=== PATIENT | male | born 1945 | race Caucasian/White ===

== ENCOUNTER 2019-02-21 15:36 | Emergency (ER) | payer MEDICARE, SELFPAY ==
--- NOTE | 2019-02-21 15:41 | ED.GENADUL_ITS ---
Discharge Plan Disposition Patient Disposition: HOME Discharge Details Chief Complaint: Laceration Clinical Impression: Finger laceration Primary Care Provider: Concepcion,Local ED Provider: Micha Yang Home Meds and New Rx's Prescriptions: No Action atorvastatin [Lipitor] 80 mg Tablet 80 mg PO DAILY RF: 0 propranolol 40 mg Tablet 40 mg PO RF: 0 Discharge Instructions Instructions: Finger Laceration (ED) Additional Instructions: Please return to the emergency department immediately for pain bleeding swelling purulent discharge fever chills or other concerns. Medical Decision Making 73-year-old male with finger laceration avulsion no tendon injury no vascular compromise hemostatic patient presents 18 to 20 hours post injury outside of primary closure window will closed with Steri-Strips splint and have patient follow-up for delayed primary closure at his discretion. Otherwise patient to return for bleeding pain swelling purulent discharge or other concern. HPI 73-year-old male with laceration to left middle finger opening a dog food can l ast night approximately 18 to 20 hours prior to arrival today presents with continued oozing pain for assessment and possible closure. Patient tetanus updated within the last month with a routine physician visit denies other trauma. Pain is sharp nonradiating worse with movement and palpation better with rest. General Date/Time Provider Initiated Documentation: 02/21/19 15:38 . Related Data Home Medications Medication Instructions Recorded Confirmed atorvastatin [Lipitor] 80 mg PO DAILY 02/21/19 02/21/19 propranolol 40 mg PO 02/21/19 Allergies Allergy/AdvReac Type Severity Reaction Status Date / Time No Known Allergies Allergy Unverified 02/21/19 15:46 Review of Systems Narrative: No sob/chest pain/nausea/vomiting/loss of consciousness/fever/chills/ . All other systems reviewed and negative or stated as positive here or in HPI above[] All systems reviewed & are unremarkable except as noted in HPI and below PFSH Social History Smoking/Tobacco Use Status: Never Do you feel safe at home: Yes Do you feel safe in your relationship?: Yes Exam Narrative Exam Narrative: Pulse oximetry reviewed by me and is normal [] Constitutional: Pt is in no acute distress. pt is well appearing. oriented to person, place, and time. Eyes: conjunctivae are normal. Pupils are equal, round, and reactive to light. No scleral icterus. extraocular muscles are intact Ears/Nose/Mouth/Throat: mucus membranes are moist. Musculoskeletal: neck is supple. normal range of motion in all extremities. Cardiovascular: Normal rate and rhythm. No lower extremity edema [] Respiratory: effort is normal . pt exhibits no stridor or respiratory distress. [] GastrointestinaI: abdomen soft, +BS, nontender, -rebound, -guarding. Neurological: alert and oriented to person, place, and time. he has normal strength, no tremor. Skin: Skin is warm and dry. he is not diaphoretic. Distal perfusion in tact, warm extremities, cap refill ? 2 seconds. 2 cm avulsion laceration left middle finger volar surface wound irrigated anesthetized with 2 cc digital block 1% lidocaine explored with bloodless field for tourniquet no tendon involvement no deep space injury no gross contamination full motor and sensation distally. Hem/Lymph/Imm: No cervical LAD, no goiter, no conjunctival pallor Psych: normal mood and affect. behavior is normal Triage and nurse notes reviewed.[]
[2019-02-21 15:43] VITALS: BP 153/109; PULSE 84; RESP 18; TEMP 36.8; O2SAT 97
== END 2019-02-21 16:33 | disposition home or self-care (01) ==
PROVIDERS: Emergency Provider Emergency Medicine
DX: S61.213A Laceration without foreign body of left middle finger without damage to nail, initial encounter (principal); W26.8XXA Contact with other sharp object(s), not elsewhere classified, initial encounter
CPT/HCPCS: 29130; 99283; 99282

== ENCOUNTER 2019-04-27 08:46 | Emergency (ER) | payer MEDICARE, SELFPAY ==
[2019-04-27 08:51] VITALS: BP 129/100; PULSE 103; RESP 20; TEMP 36.9; O2SAT 97
[2019-04-27] MEDS: Normal Saline 1,000 ML 1000 ML IV (09:15)
[2019-04-27] MEDS: Normal Saline Flush 10 ML SYR IVP (09:19)
[2019-04-27 09:27] LABS: Abs Immature Grans 0.04 k/cumm (0.0-0.09); HCT 45.8 % (40.0-50.0); HGB 15.8 g/dL (13.5-17.5); Mean Corp. HGB Concentration 34.5 g/dL (32.0-36.0); Mean Corpuscular Hemoglobin 30.3 pg (27.0-33.0); Mean Corpuscular Volume 87.7 fL (80-95); Mean Platelet Volume 9.7 fL (8.0-11.0); Platelet Count 236 x1000/uL (130-400); RBC 5.22 m/cumm (4.50-6.00); RBC Distribution Width 14.3 % (11.8-14.1); White Blood Cell Count 4.71 k/cumm (4.4-10.8)
[2019-04-27] MEDS: Ondansetron 4 MG/2 ML VIAL IVP (09:35)
[2019-04-27 09:41] LABS: ALT 22 U/L (16-63); AST 29 U/L (15-37); Albumin 3.5 g/dL (3.4-5.0); Alkaline Phosphatase 48 U/L (46-116); Anion Gap 13.6 mmol/L (3-11); BUN 36 mg/dL (7-18); Bilirubin, Total 0.7 mg/dL (0.2-1.0); CO2 24.4 mmol/L (21.0-32.0); CREATININE 1.57 mg/dL (0.70-1.30); Calcium 9.1 mg/dL (8.5-10.1); Chloride 97 mmol/L (98-107); Estimated GFR 43.52 (mL/min/1.73m2); Glucose 128 mg/dL (74-106); Lipase 100 U/L (73-393); Potassium 3.3 mmol/L (3.5-5.1); Sodium 135 mmol/L (136-145); Total Protein 7.9 g/dL (6.4-8.2)
[2019-04-27] MEDS: FAMOTIDINE 20 MG/50 ML BAG 200 MG IVPB (09:45)
[2019-04-27 10:04] LABS: Absolute Lymphocyte Count 0.89 k/cumm (1.2-3.4); Absolute Monocyte Count 0.94 k/cumm (0.11-0.7); Absolute Neutrophil Count 2.83 k/cumm (1.2-6.7); Diff Comment Manual Differential; Promyelocytes % 0 %
[2019-04-27 10:05] LABS: Anisocytosis 1+
[2019-04-27] MEDS: Normal Saline 500 ML 1000 ML IV (10:49)
--- NOTE | 2019-04-27 11:12 | W.ED.GENAD ---
Discharge Plan Disposition Patient Disposition: HOME Condition: Improving Discharge Details Chief Complaint: Nausea/Vomit/Diar Clinical Impression: Viral gastroenteritis Primary Care Provider: None,None ED Provider: Zaynab Wheeler Home Meds and New Rx's Prescriptions: New ondansetron HCl [Zofran] 4 mg tablet 4 mg PO Q8H PRN (Reason: nausea and vomiting) Qty: 7 RF: 0 Continued amlodipine [Norvasc] 10 mg Tablet 10 mg PO RF: 0 pantoprazole 40 mg Tablet,Delayed Release (Dr/Ec) 40 mg PO RF: 0 atorvastatin [Lipitor] 80 mg Tablet 80 mg PO DAILY RF: 0 Discharge Instructions Instructions: Gastroenteritis (ED) Additional Instructions: Advance diet as tolerated. Initially begin with clear liquids. Avoid dairy, cheese, spicy or acidic. Use nausea medication for symptomatic relief if needed. Observe for any signs of dehydration. Recheck with PCP for any persistence of symptoms lasting greater than 2 to 3 days. Return to the emergency room immediately for any increase in abdominal pain, worsening symptoms, fever or alarming symptoms sooner if needed Medical Decision Making Is a 73-year-old patient presenting for the evaluation of nausea vomiting and diarrhea. Patient reports 3 days complaints of intermittent watery diarrhea. Patient does report associated nausea and food aversion after attempting to eat last night did vomit. Patient reports chills and a temperature of 100.8 noted on day 1 which has since improved. Patient denies nasal congestion, sore throat or coughing. Patient feeling flulike. Patient does report abdominal pain which is intermittent. Denies abdominal pain at this time. Patient presents to the emergency room accompanied by his who is a material coordinator and has been trying to assist patient in staying hydrated but both and patient are now concerned that patient is dehydrated. Patient does clinically appear dehydrated. Patient did not take blood pressure medications this morning as he was quite nauseous. Patient's vital signs reviewed. Mild tachycardia and hypertension noted at this time. No measured fever or hypoxia. Patient in no apparent distress at the bedside however does appear dehydrated. Abdominal exam is benign. We will plan to hydrate patient and provide symptomatic relief with Zofran as well as Pepcid. Patient is reporting some symptomatic improvement after Zofran Pepcid and initial liter of IV fluid. Patient has not yet urinated. We will plan to provide an additional 500 cc. Given patient's nausea improvement will trial his p.o. blood pressure medication. Patient agrees with plan of care. Labs revealed. No evident leukocytosis. Patient has borderline sodium potassium and chloride findings none of which seem emergent. Patient has a mild elevation of anion gap and BUN and creatinine. Possibly due to dehydration. Reevaluation of the patient reveals a persistently benign abdominal exam. Patient feeling significantly improved. Patient is dressed, standing at the bedside, requesting discharge home. Patient's vital signs reviewed and have entirely improved. Patient denies dizziness, weakness or fatigue. No abdominal pain at this time. Will discharge patient with Zofran for symptomatic relief. Discussed slowly advancing diet as tolerated and beginning with clear liquids. Patient reports his understanding. Encouraged follow-up if not improving the next 2 to 3 days. The patient was stable and requested discharge. Prior to discharge, my usual and customary return precautions were reviewed with the patient - this included follow-up instructions and reasons to return to the Emergency Department if conditions worsens, does not improve as expected, or other new concerns arise. HPI General Date/Time Provider Initiated Documentation: 04/27/19 08:58. HPI Narrative: Is a pleasant 73-year-old patient presenting to the emergency room for complaints of nausea vomiting and diarrhea. Patient reports onset of symptoms 3 days ago. Patient reports food aversion with nausea. Patient does report an episode of vomiting last evening after trying to eat some eggs. Patient reports predominantly watery diarrhea for the last 3 days. Denies any obvious ill exposures. Denies any recent antibiotic use. Patient denies any blood with the bowel movements. Patient does report intermittent crampy abdominal pain. Patient presents today as he is now feeling dehydrated. Patient reports mild fatigue present. Chills present temperature at home max of 100.8, noted on day 1 which has since improved. Patient denies any chest pain, difficulty breathing, shortness of breath. Patient denies back pain. Denies dysuria, urgency or frequency. Does report scant urine output today. No other concerns or complaints at this time. Denies nasal congestion, sore throat or coughing. No upper respiratory symptoms associated. Related Data Home Medications Medication Instructions Recorded Confirmed atorvastatin [Lipitor] 80 mg PO DAILY 02/21/19 04/27/19 amlodipine [Norvasc] 10 mg PO 04/27/19 ondansetron HCl [Zofran] 4 mg PO Q8H PRN #7 tab 04/27/19 pantoprazole 40 mg PO 04/27/19 Previous Rx's Medication Instructions Recorded ondansetron HCl [Zofran] 4 mg PO Q8H PRN #7 tab 04/27/19 Allergies Allergy/AdvReac Type Severity Reaction Status Date / Time No Known Allergies Allergy Unverified 04/27/19 08:57 General Stated Complaint: Nausea/Vomit/Diar JOSH: 3 Review of Systems All systems reviewed & are unremarkable except as noted in HPI and below Constitutional Constitutional: Reports chills, Reports fatigue, Denies fever(s), Reports headache(s), Reports malaise and Reports poor appetite ENT Ears, Nose, Mouth, and Throat: Denies vertigo, Denies dizziness, Reports headache(s), Denies nasal congestion, Denies post nasal drip, Denies sinus pain, Denies sinus pressure and Denies sore throat Cardiovascular Cardiovascular: Denies chest pain, Denies diaphoresis, Denies dyspnea and Denies dyspnea on exertion Respiratory Respiratory: Denies cough, Denies dyspnea and Denies dyspnea on exertion Gastrointestinal Gastrointestinal: Reports abdominal pain, Reports cramping, Reports heartburn, Reports diarrhea, Reports nausea and Reports vomiting Genitourinary Genitourinary: Denies dysuria and Denies flank pain Neurologic Neurologic: Denies vertigo, Denies dizziness and Reports headache(s) Endocrine Endocrine: Reports fatigue PFSH Social History Smoking/Tobacco Use Status: Never Do you feel safe at home: Yes Do you feel safe in your relationship?: Yes Exam Narrative Exam Narrative: CONST: Healthy appearing patient, in no acute distress. Well hydrated. Alert and oriented. HENMT: Head nomocephalic, normal to inspection. Atraumatic. Hearing grossly normal. TMs appear normal bilaterally. No pharyngeal erythema. Dry mucous membranes specifically tongue noted. EYES: General normal appearance. Alignment normal. Eyelids normal. Conjunctiva normal. NECK: Normal visual inspection. FROM. Trachea midline. No Midline tenderness. No cervical lymphadenopathy at this time CHEST: Normal insepection of the chest. RESP: Normal respiratory effort. Speaking full sentences. No cough. No audible wheezing. No retractions. Breath sounds clear, full and equal bilaterally. No wheezing, rhonchi or rales CARDIO: No JVD. No murmur. Regular rate and rhythm GI: Bowel sounds are present in all 4 quadrants. Abdomen is soft. Mild epigastric tenderness. No peritoneal signs, rebound or guarding. Back: No CVA tenderness noted bilaterally SKIN: Normal. Dry. No rashes. NEURO: Alert and awake. Speech clear. PSYCH: Normal affect. Cooperative. Course Vital Signs Vital signs: Vital Signs Temperature 36.9 C 04/27/19 08:51 Pulse 103 H 04/27/19 08:51 Respiratory Rate 20 04/27/19 08:51 Blood Pressure 129/100 H 04/27/19 08:51 Pulse Oximetry 97 04/27/19 08:51 Temperature 36.9 C 04/27/19 08:51 Temperature Source Oral 04/27/19 08:51 Pulse 103 H 04/27/19 08:51 Respiratory Rate 04/27/19 08:51 Respiratory Effort 04/27/19 08:55 Blood Pressure 129/100 H 04/27/19 08:51 Blood Pressure Position Supine 04/27/19 08:51 Pulse Oximetry 97 04/27/19 08:51 Oxygen Delivery Method Room Air 04/27/19 08:51 Oxygen Flow Rate 0 04/27/19 08:51 Lab/Test Results Lab/Test Results: 04/27/19 09:07 Nasopharynx Influenza Types A,B Antigen - Final Laboratory Tests Range/Units 04/27/19 04/27/19 09:16 09:16 WBC (4.4-10.8) k/cumm 4.71 RBC (4.50-6.00) m/cumm 5.22 Hgb (13.5-17.5) g/dL 15.8 Hct (40.0-50.0) % 45.8 MCV (80-95) fL 87.7 MCH (27.0-33.0) pg 30.3 MCHC (32.0-36.0) g/dL 34.5 RDW (11.8-14.1) % 14.3 H Plt Count (130-400) x1000/uL 236 MPV (8.0-11.0) fL 9.7 Immature Gran % See Differential Neutrophils % 60.0 Lymphocytes % 19.0 Monocytes % 20.0 Eosinophils % 0.0 Basophils % 0.0 Metamyelocytes % % 1.0 Myelocytes % % 0.0 Promyelocytes % % 0 Absolute Neutrophils (1.2-6.7) k/cumm 2.83 Absolute Lymphocytes (1.2-3.4) k/cumm 0.89 L Absolute Monocytes (0.11-0.7) k/cumm 0.94 H Absolute Eosinophils (0.0-0.7) k/cumm 0.00 Absolute Basophils (0.0-0.2) k/cumm 0.00 Differential Comment Manual differential RBC Morphology See below Anisocytosis 1+ Sodium (136-145) mmol/L 135 L Potassium (3.5-5.1) mmol/L 3.3 L Chloride (98-107) mmol/L 97 L Carbon Dioxide (21.0-32.0) mmol/L 24.4 Anion Gap (3-11) mmol/L 13.6 H BUN (7-18) mg/dL 36 H Creatinine (0.70-1.30) mg/dL 1.57 H Estimated GFR/1.73 m2 (mL/min/1.73m2) 43.52 Glucose (74-106) mg/dL 128 H Calcium (8.5-10.1) mg/dL 9.1 Total Bilirubin (0.2-1.0) mg/dL 0.7 AST (15-37) U/L 29 ALT (16-63) U/L 22 Alkaline Phosphatase (46-116) U/L 48 Total Protein (6.4-8.2) g/dL 7.9 Albumin (3.4-5.0) g/dL 3.5 Lipase (73-393) U/L 100
[2019-04-27 12:00] LABS: Bilirubin Negative (Negative); Blood Trace-lysed (Negative); Clarity Clear (Clear); Glucose Negative (Negative); Ketones 15 mg/dL (Negative); Leukocyte Esterase Negative (Negative); Nitrite Negative (Negative); Specific Gravity 1.025 (1.005-1.025); Urobilinogen 0.2 EU/dL (Up TO 0.2); pH 5.5 (5-8)
[2019-04-27 12:09] LABS: Bacteria Negative HPF (Negative); Crystals Negative HPF (Negative); Epithelial Cells Rare HPF (Negative); Mucus Negative (Negative); RBC 0-2 HPF (0-2)
[2019-04-27 12:14] LABS: C & S Indicated? Yes; Casts 0-2 Hyaline LPF (Negative)
[2019-04-27 12:24] VITALS: BP 122/72; PULSE 84; TEMP 36.5; O2SAT 96
== END 2019-04-27 12:45 | disposition home or self-care (01) ==
PROVIDERS: Emergency Provider Physician Assistant
DX: A08.4 Viral intestinal infection, unspecified (principal)
CPT/HCPCS: 80053; 83690; 87449; 96361; 96365; 96374; 99284; 81003; 81015; 85025; 87086; J2405

== ENCOUNTER 2019-09-02 14:39 | Emergency (ER) | payer MEDICARE, SELFPAY ==
[2019-09-02] VITALS (8 sets, daily range): BP systolic 137–185; BP diastolic 77–93; PULSE 49–70; RESP 10–23; TEMP 36.6–36.7; O2SAT 97–100
[2019-09-02 15:03] LABS: Lactate 1.4 mmol/L (0.6-1.4)
[2019-09-02 15:06] LABS: Abs Immature Grans 0.03 k/cumm (0.0-0.09); Absolute Basophil Count 0.04 k/cumm (0.0-0.2); Absolute Eosinophil Count 0.11 k/cumm (0.0-0.7); Absolute Lymphocyte Count 1.87 k/cumm (1.2-3.4); Absolute Monocyte Count 0.91 k/cumm (0.11-0.7); Absolute Neutrophil Count 9.21 k/cumm (1.2-6.7); Basophils % 0.3; Eosinophils % 0.9; HCT 48.1 % (40.0-50.0); HGB 16.3 g/dL (13.5-17.5); Immature Grans % 0.2 %; Lymphocytes % 15.4; Mean Corp. HGB Concentration 33.9 g/dL (32.0-36.0); Mean Corpuscular Hemoglobin 29.7 pg (27.0-33.0); Mean Corpuscular Volume 87.8 fL (80-95); Mean Platelet Volume 9.8 fL (8.0-11.0); Monocytes % 7.5; Neutrophils % 75.7; Platelet Count 254 x1000/uL (130-400); RBC 5.48 m/cumm (4.50-6.00); RBC Distribution Width 15.1 % (11.8-14.1); White Blood Cell Count 12.17 k/cumm (4.4-10.8)
[2019-09-02 15:26] LABS: ALT 20 U/L (16-63); AST 25 U/L (15-37); Alkaline Phosphatase 56 U/L (46-116); Anion Gap 11.4 mmol/L (3-11); BUN 14 mg/dL (7-18); Bilirubin, Total 0.7 mg/dL (0.2-1.0); CO2 25.6 mmol/L (21.0-32.0); CREATININE 1.04 mg/dL (0.70-1.30); Calcium 9.5 mg/dL (8.5-10.1); Chloride 103 mmol/L (98-107); Glucose 105 mg/dL (74-106); Lipase 75 U/L (73-393); Potassium 3.3 mmol/L (3.5-5.1); Sodium 140 mmol/L (136-145); TSH (W/Ref FT4) 1.93 uIU/mL (0.36-3.74); Total Protein 7.8 g/dL (6.4-8.2)
[2019-09-02] MEDS: Lactated Ringers 500 ML IV (15:26)
[2019-09-02 15:28] LABS: Troponin I < 0.05 ng/mL (<0.06)
--- NOTE | 2019-09-02 15:31 | W.ED.GENAD ---
Discharge Plan Disposition Patient Disposition: HOME Condition: Stable Discharge Details Chief Complaint: Abd Prob Clinical Impression: Abdominal pain, Diverticulosis, Hypokalemia, Elevated blood pressure reading, Prostate enlargement Primary Care Provider: None,None ED Provider: Jaime Clemens Home Meds and New Rx's Prescriptions: Continued amlodipine [Norvasc] 10 mg Tablet 10 mg PO DAILY RF: 0 pantoprazole 40 mg Tablet,Delayed Release (Dr/Ec) 40 mg PO RF: 0 ondansetron HCl [Zofran] 4 mg tablet 4 mg PO Q8H PRN (Reason: nausea and vomiting) Qty: 7 RF: 0 atorvastatin [Lipitor] 80 mg Tablet 80 mg PO DAILY RF: 0 Discharge Instructions Instructions: Hypokalemia (ED), Abdominal Pain (ED) Additional Instructions: Please be sure to discuss findings on CT with your urologist. Call to schedule follow-up. Please contact your primary care physician to arrange follow-up. Be sure to discuss your elevated blood pressure with your primary care physician. Return to the ER for any worsening or new concerning symptoms. Discharge Data Discharge Date/Time-TO BE ENTERED AT DEPARTURE: 09/02/19 18:28 Medical Decision Making 73-year-old male here with lower abdominal pain. Patient notes pain across his waistline for the past 5 hours. Labs reviewed and mild hypokalemia. K-Dur [address] the abdomen pelvis was interpreted by radiology: IMPRESSION: 1. Severe diverticulosis of but no definite evidence of acute diverticulitis 2. Marked enlargement the prostate gland which appears very inhomogeneous. If clinically indicated PSA value and consultation with a urologist is suggested Screening ECG was reviewed and interpreted by me: Sinus bradycardia 55 bpm, right bundle branch block is present with left axis. Patient reassessed and pain resolved. Patient notes pain is been gone for the past one-two hours and feels much better. All results were discussed with the patient. Patient was notified that his blood pressure was elevated today and that he should follow-up with his doctor. Patient also plans to follow-up with his urologist. Disposition decision was made weighing the risks and benefits of hospitalization versus outpatient treatment, the risk for further decompensation, and the patient's wishes. The patient was stable and requested discharge. Prior to discharge, my usual and customary return precautions were reviewed with the patient - this included follow-up instructions and reason to return to the emergency department if condition worsens, does not improve as expected, or other new concerns arise. HPI General Mode of arrival: ambulatory. Date/Time Provider Initiated Documentation: 09/02/19 14:53. Limitations to Documentation: no limitations. Information obtained by: patient. HPI Narrative: 73-year-old male with history of diverticulosis presents with chief complaint of abdominal pain. Pain started 5 hours ago and has persisted. No associated nausea or vomiting. Patient notes chronic irritable bowel with intermittent loose stool, intermittent constipation for some time. Patient denies associated chest pain. Patient does note significant stress recently with the loss of his pet dog. Related Data Home Medications Medication Instructions Recorded Confirmed atorvastatin [Lipitor] 80 mg PO DAILY 02/21/19 09/02/19 amlodipine [Norvasc] 10 mg PO DAILY 04/27/19 09/02/19 ondansetron HCl [Zofran] 4 mg PO Q8H PRN #7 tab 04/27/19 09/02/19 pantoprazole 40 mg PO 04/27/19 Previous Rx's Medication Instructions Recorded ondansetron HCl [Zofran] 4 mg PO Q8H PRN #7 tab 04/27/19 Allergies Allergy/AdvReac Type Severity Reaction Status Date / Time No Known Allergies Allergy Unverified 09/02/19 14:49 General Stated Complaint: Abd Prob JOSH: 3 Review of Systems All systems reviewed & are unremarkable except as noted in HPI and below Constitutional Constitutional: Denies fever(s) Gastrointestinal Gastrointestinal: Reports abdominal pain, Denies nausea and Denies vomiting Genitourinary Genitourinary: Denies dysuria and Denies scrotal swelling [facility] Social History Smoking/Tobacco Use Status: Never Alcohol Intake: current Alcohol Intake frequency: a few times a month Drug use: Never Substance use type: does not use Do you feel safe at home: Yes Do you feel safe in your relationship?: Yes Exam Const General: cooperative and no acute distress HENMT Mouth: moist mucous membranes Eyes Conjunctivae: normal conjunctivae Sclera: normal sclerae Neck Neck: trachea midline and supple Resp Auscultation: clear to auscultation bilaterally, no rales, no rhonchi and no wheezes Cardio Jugular venous pressure: no JVD Rate: regular rate and not tachycardic Rhythm: regular rhythm GI Palpation: soft, not firm, no guarding, no masses, not rigid and tender in the LLQ and in the RLQ Skin General skin exam: no rashes or lesions noted Neuro General: patient alert, patient awake, patient oriented x3 and tone normal Extrem General: no edema Psych Appearance: grossly normal Mental Status: mental status grossly normal Course Vital Signs Vital signs: Vital Signs Temperature 36.6 C 09/02/19 14:44 Pulse 50 L 09/02/19 14:44 Blood Pressure 185/84 H 09/02/19 14:44 Pulse Oximetry 100 09/02/19 14:44 Temperature 36.6 C 09/02/19 14:44 Temperature Source Temporal Artery Scan 09/02/19 14:44 Pulse 50 L 09/02/19 14:44 Respiratory Effort Non-Labored 09/02/19 14:47 Blood Pressure 185/84 H 09/02/19 14:44 Blood Pressure Position Sitting 09/02/19 14:44 Pulse Oximetry 100 09/02/19 14:44 Oxygen Delivery Method Room Air 09/02/19 14:44 Oxygen Flow Rate 0 09/02/19 14:44 Pain Level 5 09/02/19 14:44 Lab/Test Results Lab/Test Results: Laboratory Tests Range/Units 09/02/19 09/02/19 09/02/19 14:58 14:58 14:58 WBC (4.4-10.8) k/cumm 12.17 H RBC (4.50-6.00) m/cumm 5.48 Hgb (13.5-17.5) g/dL 16.3 Hct (40.0-50.0) % 48.1 MCV (80-95) fL 87.8 MCH (27.0-33.0) pg 29.7 MCHC (32.0-36.0) g/dL 33.9 RDW (11.8-14.1) % 15.1 H Plt Count (130-400) x1000/uL 254 MPV (8.0-11.0) fL 9.8 Immature Gran % % 0.2 Neutrophils % 75.7 Lymphocytes % 15.4 Monocytes % 7.5 Eosinophils % 0.9 Basophils % 0.3 Absolute Neutrophils (1.2-6.7) k/cumm 9.21 H Absolute Lymphocytes (1.2-3.4) k/cumm 1.87 Absolute Monocytes (0.11-0.7) k/cumm 0.91 H Absolute Eosinophils (0.0-0.7) k/cumm 0.11 Absolute Basophils (0.0-0.2) k/cumm 0.04 Sodium (136-145) mmol/L 140 Potassium (3.5-5.1) mmol/L 3.3 L Chloride (98-107) mmol/L 103 Carbon Dioxide (21.0-32.0) mmol/L 25.6 Anion Gap (3-11) mmol/L 11.4 H BUN (7-18) mg/dL 14 Creatinine (0.70-1.30) mg/dL 1.04 Estimated GFR/1.73 m2 (mL/min/1.73m2) >= 60.00 Glucose (74-106) mg/dL 105 Lactate (0.6-1.4) mmol/L 1.4 Calcium (8.5-10.1) mg/dL 9.5 Total Bilirubin (0.2-1.0) mg/dL 0.7 AST (15-37) U/L 25 ALT (16-63) U/L 20 Alkaline Phosphatase (46-116) U/L 56 Troponin I (<0.06) ng/mL < 0.05 Total Protein (6.4-8.2) g/dL 7.8 Albumin (3.4-5.0) g/dL 4.0 Lipase (73-393) U/L 75 TSH (0.36-3.74) uIU/mL 1.93
--- NOTE | 2019-09-02 15:45 | DI.CT_ITS ---
EXAM: CT ABDOMEN PELVIS W CLINICAL HISTORY: lower abdominal pain bilateral waist line 5 hours TECHNIQUE: Imaging Protocol: Axial computed tomography images with coronal and sagittal reformatted images were created and reviewed CONTRAST MATERIAL: Intravenous: Omnipaque 350 Contrast volume:100 mL Oral: No COMPARISON: No exams were available for comparison FINDINGS: ABDOMEN: Lung Bases: Mild atelectasis in the lung bases. Liver: Normal density. No measurable mass. Portal, Superior Mesenteric, and Splenic Veins: Unremarkable. Gallbladder and Biliary Tract: No radiodense calculus or dilation. Pancreas: Normal density, no abnormal calcifications or inflammatory process. Spleen: Normal. Adrenals: No masses seen. Kidneys: Normal size, contour and axis. No radiodense stones or obstructive uropathy. Multiple tiny h ypodense lesions are seen scattered throughout both kidneys. Several of these are too small for furt her characterization but likely reflect small cysts. Abdominal Aorta: Abdominal portion non-dilated. Atherosclerosis. Bowel: There is no evidence of obstruction. There is diffuse diverticulosis of the colon. There is mild thickening of the wall of the mid sigmoid colon. No definite pericolonic inflammatory changes s een in this region. There is mild increased attenuation in the surrounding fat in the splenic flexur e. The findings raise a question of acute diverticulitis. Appendix is unremarkable. Peritoneal Cavity: No ascites, collection or mesenteric inflammatory response. Lymph Nodes: Within normal limits. Bones: Moderate degenerative changes are seen in the spine. There is grade 1 pseudo spondylolisthesi s of L4 on L5. Soft Tissues: Unremarkable. PELVIS: Bladder: The urinary bladder is well distended. There is mild diffuse urinary bladder wall thickenin g present. Reproductive Organs: Prostate gland is heterogeneous and enlarged. It impinges upon the base of the urinary bladder. Lymph Nodes: Within normal limits. Bones: Please see above. IMPRESSION: 1. Colonic diverticulosis. Pericolonic stranding in the splenic flexure which may represent acute di verticulitis. No abscess or free air. 2. Enlarged heterogeneous prostate gland. It impinges upon base of the urinary bladder. If clinical ly indicated, correlation with the patient's PSA value and urology consult may be obtained. RADIATION DOSE DELIVERED: Total DLP DATA REPOSITORY: All CT scans at this facility are submitted to the National Radiology Data Registry (NRDR) Dose Index Registry (DIR) with the [employer] ([employer]). RADIATION OPTIMIZATION: All CT scans at this facility use at least one of these dose optimization te chniques: automated exposure control; mA and/or kV adjustment per patient size (includes targeted exa ms where dose is matched to clinical indication); or iterative reconstruction.
[2019-09-02] MEDS: Potassium Chloride 20 MEQ TABCR PO (15:56)
[2019-09-02] MEDS: Omnipaque 350 MG/ML 100 ML BTL IV (16:24)
[2019-09-02] MEDS: Normal Saline - Diluent 50 ML VIAL IV (16:39)
--- NOTE | 2019-09-02 17:21 | DI.VRAD_ITS ---
PROCEDURE INFORMATION: Exam: CT Abdomen And Pelvis With Contrast Exam date and time: 09/02/2019 4:39 PM Age: 73 years old Clinical indication: Abdominal pain; Other: Lower abd pain TECHNIQUE: Imaging protocol: Computed tomography of the abdomen and pelvis with intravenous contrast. Contrast material: OMNIPAQUE 350; Contrast volume: 100 ml; Contrast route: IV; COMPARISON: No relevant prior studies available. FINDINGS: Liver: Normal. No mass. Gallbladder and bile ducts: Normal. No calcified stones. No ductal dilation. Pancreas: Normal. No ductal dilation. Spleen: Normal. No splenomegaly. Adrenals: Normal. No mass. Kidneys and ureters: There are multiple of subcentimeter hypodensities scattered throughout the kidneys too small to completely characterize but but usually represent benign cysts. Stomach and bowel: Stomach is moderately distended with a small air-fluid level. There is a prominent amount of fluid throughout nondilated small bowel. Moderate fecal burden throughout the colon. There are multiple diverticula in the left colon predominantly the sigmoid colon but a few in the right colon as well without obvious surrounding inflammatory reaction. Appendix: The appendix is not visualized but there are no secondary signs of appendicitis. Intraperitoneal space: Unremarkable. No free air. No significant fluid collection. Vasculature: Severe diffuse atherosclerosis. Lymph nodes: Unremarkable. No enlarged lymph nodes. Bladder: Urinary bladder is well distended but the bladder wall is diffusely thickened. Reproductive: Prostate gland is markedly enlarged and inhomogeneous the with the central of hyperdensity roughly 2 cm in size. Prostate gland is causing moderate mass effect upon the base of the bladder. Bones/joints: Severe degenerative changes of the lower lumbar spine. Moderate discogenic disease at L2-L3 and L3-L4. There is of borderline grade 2 spondylolisthesis at L4-L5 Soft tissues: Unremarkable. IMPRESSION: 1. Severe diverticulosis of but no definite evidence of acute diverticulitis 2. Marked enlargement the prostate gland which appears very inhomogeneous. If clinically indicated PSA value and consultation with a urologist is suggested Dictated and Authenticated by: Konstantin Chung MD. Ordering:GOSIA Sandoval MD
[2019-09-02 18:33] LABS: Bilirubin Negative (Negative); Blood Negative (Negative); Clarity Clear (Clear); Glucose Negative (Negative); Ketones 40 mg/dL (Negative); Leukocyte Esterase Negative (Negative); Nitrite Negative (Negative); Specific Gravity 1.015 (1.005-1.025); Urobilinogen 0.2 EU/dL (Up TO 0.2)
== END 2019-09-02 18:28 | disposition home or self-care (01) ==
PROVIDERS: Emergency Provider Student in an Organized Health Care Education/Training Program
DX: E87.6 Hypokalemia (principal); R10.30 Lower abdominal pain, unspecified; K57.30 Diverticulosis of large intestine without perforation or abscess without bleeding; N40.0 Benign prostatic hyperplasia without lower urinary tract symptoms; K58.8 Other irritable bowel syndrome; R03.0 Elevated blood-pressure reading, without diagnosis of hypertension
CPT/HCPCS: 36415; 80053; 83690; 93005; 96360; 99285; 74177; 81003; 83605; 84443; 84484; 85025; 93010; J3490

== ENCOUNTER 2019-09-10 03:03 | Outpatient (CLI) | payer MEDICARE, SELFPAY ==
[2019-09-11 14:09] LABS: PSA, Ultrasensitive <0.01 ng/mL (<= 6.5)
== END 2019-09-10 03:23 ==
PROVIDERS: Visit Provider Nurse Practitioner Adult Health
DX: R97.20 Elevated prostate specific antigen [PSA] (principal)
CPT/HCPCS: 36415; 84153

== ENCOUNTER 2019-12-02 08:18 | Emergency (ER) | payer MEDICARE, SELFPAY ==
[2019-12-02 08:21] VITALS: BP 132/81; PULSE 60; RESP 16; TEMP 36; O2SAT 96
--- NOTE | 2019-12-02 08:44 | W.ED.GENAD ---
Discharge Plan Disposition Patient Disposition: HOME Condition: Stable Discharge Details Clinical Impression: Sty Primary Care Provider: None,None ED Provider: Lobito Ellis Home Meds and New Rx's Prescriptions: New erythromycin 5 mg/gram (0.5 %) ointment 0.5 inch ophthalmic (eye) QID 7 Days Qty: 3.5 RF: 0 Continued amlodipine [Norvasc] 10 mg Tablet 10 mg PO DAILY RF: 0 pantoprazole 40 mg Tablet,Delayed Release (Dr/Ec) 40 mg PO RF: 0 ondansetron HCl [Zofran] 4 mg tablet 4 mg PO Q8H PRN (Reason: nausea and vomiting) Qty: 7 RF: 0 atorvastatin [Lipitor] 80 mg Tablet 80 mg PO DAILY RF: 0 Discharge Instructions Instructions: Nando (ED) Additional Instructions: Erythromycin eye ointment as directed. Warm moist compresses every 2 hours for 20 minutes. Please watch for new or worsening symptoms and return to the ER for any concerns. I recommend reaching out to [facility] in the next 3 to 5 days if you are not getting any resolution of your symptoms. Referrals: [facility] [Outside] Medical Decision Making 74-year-old gentleman presents complaining of a stye. Examination is consistent of such. No blurry or double vision. No evidence of orbital or periorbital cellulitis. We discussed topical erythromycin ointment, consistent warm compresses, and outpatient referral to [facility]. Otherwise encouraged to return to the ER for new or evolving symptoms. Patient comfortable this plan and has no additional questions or concerns Medical Records Medical records reviewed: Yes I reviewed the patient's medical records. HPI General Mode of arrival: ambulatory. Date/Time Provider Initiated Documentation: 12/02/19 08:18. Limitations to Documentation: no limitations. Information obtained by: patient. HPI Narrative: This is a 74-year-old gentleman who does not wear contacts or glasses presenting for a right eye stye that is been present for nearly 1 month. It has been intermittent in nature. He did try popping it with a needle but was unsuccessful. He did take oral Keflex, started to get better but after discontinuing the Keflex it came back. He tells me that a friend recently told him to start using warm compresses but he has not done that yet. He denies any blurry or double vision. Denies recent illness or trauma. He reports that the stye is minimally painful. There is no spreading redness from the stye. Related Data Home Medications Medication Instructions Recorded Confirmed atorvastatin [Lipitor] 80 mg PO DAILY 02/21/19 12/02/19 amlodipine [Norvasc] 10 mg PO DAILY 04/27/19 12/02/19 ondansetron HCl [Zofran] 4 mg PO Q8H PRN #7 tab 04/27/19 12/02/19 pantoprazole 40 mg PO 04/27/19 erythromycin 0.5 inch OPHTHALMIC (EYE) QID 7 12/02/19 Days #3.5 g Previous Rx's Medication Instructions Recorded ondansetron HCl [Zofran] 4 mg PO Q8H PRN #7 tab 04/27/19 erythromycin 0.5 inch OPHTHALMIC (EYE) QID 7 12/02/19 Days #3.5 g Allergies Allergy/AdvReac Type Severity Reaction Status Date / Time No Known Allergies Allergy Unverified 12/02/19 08:25 General Stated Complaint: EyeProblem JOSH: 4 Review of Systems Constitutional Constitutional: Denies fever(s) and Denies headache(s) Eyes Eyes: Denies blurry vision, Denies change in vision, Denies eye discharge, Reports irritation and Reports eye pain ENT Ears, Nose, Mouth, and Throat: Denies headache(s), Denies nasal discharge and Denies sore throat Neurologic Neurologic: Denies headache(s) PFSH Medical History Diverticulosis Social History Smoking/Tobacco Use Status: Never Alcohol Intake: current Alcohol Intake frequency: a few times a month Drug use: Never Substance use type: does not use Do you feel safe at home: Yes Do you feel safe in your relationship?: Yes Exam Const General: cooperative, healthy appearing, comfortable and no acute distress Orientation: alert and awake [facility] Head: normal to inspection, normocephalic and atraumatic Face and sinus: normal facial exam Mouth: moist mucous membranes Eyes Alignment and Position: alignment normal Periorbital: periorbital findings normal Eyelids: eyelid abnormality (Right upper lid flipped, no abnormality) right lower eyelid other (Inflamed medial third eyelid stye) Conjunctivae: conjunctivae normal Sclera: sclerae normal Cornea: corneas normal Pupils: PERRL Direct ophthalmoscopy: normal light reflex Eyes/upper lids images: 1. Stye location Neck Neck: normal visual inspection, full ROM, trachea midline and supple Resp Effort & Inspection: normal respiratory effort and able to speak in complete sentences Cardio Rate: regular rate Rhythm: regular rhythm Skin General skin exam: no rashes or lesions noted Neuro General: patient alert, patient awake, moves all extremities and no focal motor deficits Sensory Exam: no sensory deficits noted Psych Appearance: grossly normal Mental Status: mental status grossly normal Course Vital Signs Vital signs: Vital Signs Temperature 36 C L 12/02/19 08:21 Pulse 60 12/02/19 08:21 Respiratory Rate 16 12/02/19 08:21 Blood Pressure 132/81 12/02/19 08:21 Pulse Oximetry 96 12/02/19 08:21 Temperature 36 C L 12/02/19 08:21 Temperature Source Skin 12/02/19 08:21 Pulse 60 12/02/19 08:21 Respiratory Rate 16 12/02/19 08:21 Respiratory Effort Non-Labored 12/02/19 08:21 Blood Pressure 132/81 12/02/19 08:21 Blood Pressure Position Supine 12/02/19 08:21 Pulse Oximetry 96 12/02/19 08:21 Oxygen Delivery Method Room Air 12/02/19 08:21 Oxygen Flow Rate 0 12/02/19 08:21 Pain Level 0 12/02/19 08:21
== END 2019-12-02 08:55 | disposition home or self-care (01) ==
PROVIDERS: Emergency Provider Physician Assistant
DX: H00.012 Hordeolum externum right lower eyelid (principal)
CPT/HCPCS: 99283

== ENCOUNTER 2021-05-17 01:16 | Outpatient (CLI) | payer MEDICARE, SELFPAY ==
[2021-05-17 11:59] LABS: Source Nasal/Nares
[2021-05-17 14:43] LABS: COVID-19 PCR Negative (Negative)
== END 2021-05-17 01:17 | disposition home or self-care (01) ==
LOC: LBO 01:16
PROVIDERS: Visit Provider Neurological Surgery
DX: Z20.822 Contact with and (suspected) exposure to COVID-19 (principal); Z01.818 Encounter for other preprocedural examination
CPT/HCPCS: 87635; U0005

== ENCOUNTER → 2021-07-14 12:57 | Outpatient (BNVA) | payer MEDICARE, SELFPAY | PROVIDERS: Visit Provider Urology | DX: R33.8 Other retention of urine (principal) | CPT/HCPCS: 51798; 81003; 99215 ==

== ENCOUNTER 2021-07-14 15:37 | Outpatient (REF) | payer MEDICARE, SELFPAY ==
[2021-07-14 14:43] LABS: CREATININE 0.9 mg/dL (0.70-1.30)
== END 2021-07-14 15:38 | disposition home or self-care (01) ==
LOC: LBN 15:37
PROVIDERS: Visit Provider Internal Medicine Cardiovascular Disease
DX: R33.8 Other retention of urine (principal)
CPT/HCPCS: 82565

== ENCOUNTER → 2021-10-11 14:12 | Outpatient (BNVA) | payer MEDICARE, SELFPAY | PROVIDERS: Visit Provider Nurse Practitioner Gerontology | DX: R33.8 Other retention of urine (principal); R39.15 Urgency of urination; K64.9 Unspecified hemorrhoids; R97.20 Elevated prostate specific antigen [PSA] | CPT/HCPCS: 36415; 51798; 99215 ==

== ENCOUNTER 2021-10-11 21:07 | Outpatient (REF) | payer MEDICARE, SELFPAY | END 2021-10-11 21:08 | disposition home or self-care (01) | LOC: LBN 21:07 | PROVIDERS: Visit Provider Nurse Practitioner Gerontology | DX: R97.20 Elevated prostate specific antigen [PSA] (principal); R33.9 Retention of urine, unspecified | CPT/HCPCS: 84153 ==

== ENCOUNTER 2022-03-31 01:38 | Outpatient (CLI) | payer MEDICARE, SELFPAY ==
[2022-03-31 15:36] LABS: ALT 22 U/L (16-63); AST 29 U/L (15-37); Albumin 3.9 g/dL (3.4-5.0); Alkaline Phosphatase 83 U/L (46-116); Anion Gap 3.3 mmol/L (3-11); BUN 22 mg/dL (7-18); Bilirubin, Total 0.4 mg/dL (0.2-1.0); CO2 32.7 mmol/L (21.0-32.0); CREATININE 1.1 mg/dL (0.70-1.30); Calcium 9.4 mg/dL (8.5-10.1); Calculated LDL 72 mg/dL (<100); Chloride 106 mmol/L (98-107); Cholesterol 172 mg/dL (<200); Estimated GFR 69.57 (mL/min/1.73m2); Glucose 93 mg/dL (74-106); HDL Cholesterol 52 mg/dL (40-60); Potassium 4.1 mmol/L (3.5-5.1); Sodium 142 mmol/L (136-145); Total Protein 7.3 g/dL (6.4-8.2); Triglyceride 240 mg/dL (<150)
== END 2022-03-31 01:39 | disposition home or self-care (01) ==
LOC: LBO 01:38
PROVIDERS: Visit Provider Internal Medicine Cardiovascular Disease
DX: E78.5 Hyperlipidemia, unspecified (principal); I10 Essential (primary) hypertension
CPT/HCPCS: 36415; 80053; 80061; 84153

== ENCOUNTER → 2022-04-11 08:30 | Outpatient (BNVA) | payer MEDICARE, SELFPAY | PROVIDERS: Visit Provider Urology | DX: R97.20 Elevated prostate specific antigen [PSA] (principal); R33.9 Retention of urine, unspecified | CPT/HCPCS: 36415; 51798; 99213 ==

== ENCOUNTER 2022-04-11 09:26 | Outpatient (CLI) | payer MEDICARE, SELFPAY ==
[2022-04-11 19:40] LABS: PSA, Diagnostic 5.3 ng/mL (<=6.5)
== END 2022-04-11 09:27 | disposition home or self-care (01) ==
LOC: LBO 09:29 → LBN 10:08
PROVIDERS: PCP Urology; Visit Provider Urology
DX: R97.20 Elevated prostate specific antigen [PSA] (principal); R33.8 Other retention of urine
CPT/HCPCS: 84153

== ENCOUNTER → 2022-07-11 09:54 | Outpatient (BNVA) | payer MEDICARE, SELFPAY | PROVIDERS: Visit Provider Urology | DX: R97.20 Elevated prostate specific antigen [PSA] (principal); K59.00 Constipation, unspecified | CPT/HCPCS: 99214 ==

== ENCOUNTER → 2022-09-12 08:45 | Outpatient (BNVA) | payer MEDICARE, SELFPAY | PROVIDERS: Visit Provider Urology | DX: R97.20 Elevated prostate specific antigen [PSA] (principal) | CPT/HCPCS: NC OV ==

== ENCOUNTER → 2022-09-14 14:34 | Outpatient (BNVA) | payer MEDICARE, SELFPAY | PROVIDERS: Visit Provider Urology | DX: C61 Malignant neoplasm of prostate (principal) | CPT/HCPCS: 55700; 76872 ==

== ENCOUNTER 2022-09-14 17:18 | Outpatient (REF) | payer MEDICARE, SELFPAY ==
--- NOTE | 2022-09-14 15:20 | PROST_PTH ---
PATIENT: Bennett Meza LOC: [facility] U#:[id number] AGE/SX: 76/M ROOM: RE09/14/[address]: Asif Cancino MD : 1945 BED: DIS: 09/14/2022 SPEC #: [id number] RECD: 09/14/22 17:30 STATUS: JANEE RESon #: [id number] JOB: 09/14/22 15:[address]: Asif Cancino DEPT: Surgical Specimen RECD BY: Crys Barahona ENTERED: 09/14/22 17:32 SP TYPE: PROST OTHR DR: None Tissues: 1 - PROSTATE NEEDLE BIOPSY 2 - PROSTATE NEEDLE BIOPSY 3 - PROSTATE NEEDLE BIOPSY 4 - PROSTATE NEEDLE BIOPSY 5 - PROSTATE NEEDLE BIOPSY 6 - PROSTATE NEEDLE BIOPSY 7 - PROSTATE NEEDLE BIOPSY 8 - PROSTATE NEEDLE BIOPSY 9 - PROSTATE NEEDLE BIOPSY 10 - PROSTATE NEEDLE BIOPSY 11 - PROSTATE NEEDLE BIOPSY 12 - PROSTATE NEEDLE BIOPSY Procedures: GROSS AND MICRO LEVEL 4 Comments: [id number]
== END 2022-09-14 17:19 | disposition home or self-care (01) ==
LOC: LBN 17:18
PROVIDERS: Visit Provider Urology
DX: C61 Malignant neoplasm of prostate (principal)
CPT/HCPCS: 88305

== ENCOUNTER → 2022-10-03 08:24 | Outpatient (BNVA) | payer MEDICARE, SELFPAY | PROVIDERS: Visit Provider Urology | DX: C61 Malignant neoplasm of prostate (principal) | CPT/HCPCS: 99443 ==

== ENCOUNTER → 2022-11-17 13:52 | Outpatient (BNVA) | payer MEDICARE, SELFPAY | PROVIDERS: Visit Provider Urology | DX: C61 Malignant neoplasm of prostate (principal); R39.89 Other symptoms and signs involving the genitourinary system; I10 Essential (primary) hypertension | CPT/HCPCS: 99214 ==

== ENCOUNTER 2022-11-17 14:50 | Outpatient (REF) | payer MEDICARE, SELFPAY ==
[2022-11-17 23:00] LABS: PSA, Diagnostic 7.3 ng/mL (<=6.5)
== END 2022-11-17 14:51 | disposition home or self-care (01) ==
LOC: LBN 14:50
PROVIDERS: Visit Provider Urology
DX: C61 Malignant neoplasm of prostate (principal)
CPT/HCPCS: 84153

== ENCOUNTER → 2023-01-02 08:19 | Outpatient (BNVA) | payer MEDICARE, SELFPAY | PROVIDERS: Visit Provider Urology | DX: C61 Malignant neoplasm of prostate (principal) | CPT/HCPCS: 99214 ==

== ENCOUNTER 2023-01-02 11:36 | Outpatient (CLI) | payer MEDICARE, SELFPAY ==
[2023-01-02 09:58] LABS: Abs Immature Grans 0.02 10^3/uL (0.0-0.06); Absolute Basophil Count 0.11 10^3/uL (0.0-0.2); Absolute Eosinophil Count 0.36 10^3/uL (0.0-0.7); Absolute Lymphocyte Count 2.17 10^3/uL (1.2-3.4); Absolute Monocyte Count 0.66 10^3/uL (0.1-0.8); Absolute Neutrophil Count 4.27 10^3/uL (1.2-6.7); Basophils % 1.4; Eosinophils % 4.7; HGB 15.6 g/dL (13.5-17.5); Immature Grans % 0.3; Lymphocytes % 28.6; MCHC 33.2 % (32.0-36.0); MCV 90 fL (80-95); MPV 9.1 fL (8.0-11.0); Monocytes % 8.7; Neutrophils % 56.3; Platelet Count 230 10^3/uL (130-400); RDW 14.6 % (11.8-14.1); RDW-SD 48.8 fL; WBC 7.59 10^3/uL (4.4-10.8)
[2023-01-02 10:42] LABS: ALT 25 U/L (16-63); AST 21 U/L (15-37); Albumin 4.2 g/dL (3.4-5.0); Alkaline Phosphatase 72 U/L (46-116); Anion Gap 10.1 mmol/L (3-11); BUN 18 mg/dL (7-18); Bilirubin, Total 0.3 mg/dL (0.2-1.0); CO2 26.9 mmol/L (21.0-32.0); CREATININE 0.9 mg/dL (0.70-1.30); Calcium 9.3 mg/dL (8.5-10.1); Chloride 108 mmol/L (98-107); Estimated GFR 87.96 (mL/min/1.73m2); Glucose 106 mg/dL (74-106); Potassium 4.1 mmol/L (3.5-5.1); Sodium 145 mmol/L (136-145)
[2023-01-02 19:06] LABS: PSA, Diagnostic 5.6 ng/mL (<=6.5)
== END 2023-01-02 11:37 | disposition home or self-care (01) ==
LOC: LBO 11:36
PROVIDERS: Visit Provider Urology
DX: C61 Malignant neoplasm of prostate (principal)
CPT/HCPCS: 36415; 80053; 99214; 84153; 85025

== ENCOUNTER → 2023-03-23 14:51 | Outpatient (BNVA) | payer MEDICARE, SELFPAY | PROVIDERS: Visit Provider Urology | DX: C61 Malignant neoplasm of prostate (principal); N40.1 Benign prostatic hyperplasia with lower urinary tract symptoms; R32 Unspecified urinary incontinence | CPT/HCPCS: 99214 ==

== ENCOUNTER 2023-04-03 15:21 | Outpatient (CLI) | payer MEDICARE, SELFPAY ==
[2023-04-03 18:05] LABS: PSA, Diagnostic 5.4 ng/mL (<=6.5)
== END 2023-04-03 15:22 | disposition home or self-care (01) ==
LOC: LBO 15:22
PROVIDERS: Visit Provider Urology
DX: C61 Malignant neoplasm of prostate (principal)
CPT/HCPCS: 36415; 84153

== ENCOUNTER → 2023-05-31 14:33 | Outpatient (BNVA) | payer MEDICARE, SELFPAY | PROVIDERS: Visit Provider Urology | DX: C61 Malignant neoplasm of prostate (principal); N40.1 Benign prostatic hyperplasia with lower urinary tract symptoms; R35.1 Nocturia | CPT/HCPCS: 99214 ==

== ENCOUNTER 2023-06-01 09:13 | Outpatient (CLI) | payer MEDICARE, SELFPAY ==
[2023-06-01 18:35] LABS: PSA, Diagnostic 5.8 ng/mL (<=6.5)
== END 2023-06-01 09:14 | disposition home or self-care (01) ==
LOC: LBO 09:13
PROVIDERS: Visit Provider Urology
DX: C61 Malignant neoplasm of prostate (principal)
CPT/HCPCS: 36415; 84153

== ENCOUNTER → 2023-06-12 08:55 | Outpatient (BNVA) | payer MEDICARE, SELFPAY | PROVIDERS: Visit Provider Urology | DX: C61 Malignant neoplasm of prostate (principal); R39.89 Other symptoms and signs involving the genitourinary system | CPT/HCPCS: 99213 ==

== ENCOUNTER 2023-06-13 14:12 | Outpatient (CLI) | payer MEDICARE, SELFPAY ==
[2023-06-13 12:36] LABS: Estimated GFR 77.52 (mL/min/1.73m2)
== END 2023-06-13 14:13 | disposition home or self-care (01) ==
LOC: LBO 14:12
PROVIDERS: Visit Provider Urology
DX: C61 Malignant neoplasm of prostate (principal); R39.89 Other symptoms and signs involving the genitourinary system
CPT/HCPCS: 36415; 82565

== ENCOUNTER → 2023-07-19 14:33 | Outpatient (BNVA) | payer MEDICARE, SELFPAY | PROVIDERS: Visit Provider Urology | DX: C61 Malignant neoplasm of prostate (principal); N32.0 Bladder-neck obstruction | CPT/HCPCS: 99214 ==

== ENCOUNTER → 2023-08-09 14:37 | Outpatient (BNVA) | payer MEDICARE, SELFPAY | PROVIDERS: Visit Provider Urology | DX: C61 Malignant neoplasm of prostate (principal); R97.20 Elevated prostate specific antigen [PSA] | CPT/HCPCS: 55700; 76872 ==

== ENCOUNTER 2023-08-09 15:14 | Outpatient (REF) | payer MEDICARE, SELFPAY ==
--- NOTE | 2023-08-09 15:20 | PROST_PTH ---
PATIENT: Bennett Meza LOC: [facility] U#:[id number] AGE/SX: 77/M ROOM: RE08/09/[address]: Asif Cancino MD : 1945 BED: DIS: 08/09/2023 SPEC #: [id number] RECD: 08/09/23 17:13 STATUS: JANEE RE #: [id number] JOB: 08/09/23 15:[address]: Asif Cancino DEPT: Surgical Specimen RECD BY: Crys Barahona ENTERED: 08/09/23 17:14 SP TYPE: PROST OTHR DR: Unknown,Unknown Tissues: 1 - PROSTATE NEEDLE BIOPSY 2 - PROSTATE NEEDLE BIOPSY 3 - PROSTATE NEEDLE BIOPSY 4 - PROSTATE NEEDLE BIOPSY 5 - PROSTATE NEEDLE BIOPSY 6 - PROSTATE NEEDLE BIOPSY 7 - PROSTATE NEEDLE BIOPSY 8 - PROSTATE NEEDLE BIOPSY 9 - PROSTATE NEEDLE BIOPSY 10 - PROSTATE NEEDLE BIOPSY 11 - PROSTATE NEEDLE BIOPSY 12 - PROSTATE NEEDLE BIOPSY Procedures: GROSS AND MICRO LEVEL 4 Comments: [id number]
== END 2023-08-09 15:15 | disposition home or self-care (01) ==
LOC: LBN 15:14
PROVIDERS: Visit Provider Urology
DX: R97.20 Elevated prostate specific antigen [PSA] (principal)
CPT/HCPCS: 88305

== ENCOUNTER → 2023-08-24 14:34 | Outpatient (BNVA) | payer MEDICARE, SELFPAY | PROVIDERS: Visit Provider Urology | DX: C61 Malignant neoplasm of prostate (principal) | CPT/HCPCS: 99214 ==

== ENCOUNTER 2024-02-11 15:10 | Outpatient (CLI) | payer MEDICARE, SELFPAY ==
[2024-02-11 15:14] LABS: HCT 43.5 % (40.0-50.0); HGB 14.6 g/dL (13.5-17.5); MCH 30.4 pg (27.0-33.0); MCHC 33.6 % (32.0-36.0); MCV 90 fL (80-95); MPV 9.2 fL (8.0-11.0); Platelet Count 185 10^3/uL (130-400); RBC 4.81 10^6/uL (4.36-5.78); RDW 14.3 % (11.8-14.1); WBC 7.14 10^3/uL (4.4-10.8)
[2024-02-11 16:37] LABS: ALT 18 U/L (16-63); AST 25 U/L (15-37); Albumin 4.1 g/dL (3.4-5.0); Alkaline Phosphatase 59 U/L (46-116); Anion Gap 10.5 mmol/L (3-11); BUN 19 mg/dL (7-18); CO2 25.5 mmol/L (21.0-32.0); CREATININE 1.2 mg/dL (0.70-1.30); Calcium 9.8 mg/dL (8.5-10.1); Calculated LDL 105 mg/dL (<100); Chloride 109 mmol/L (98-107); Cholesterol 175 mg/dL (<200); Glucose 114 mg/dL (74-106); HDL Cholesterol 55 mg/dL (40-60); Potassium 3.9 mmol/L (3.5-5.1); Sodium 145 mmol/L (136-145); Total Protein 7.9 g/dL (6.4-8.2); Triglyceride 78 mg/dL (<150)
[2024-02-11 22:43] LABS: PSA, Diagnostic 5.6 ng/mL (<=6.5)
== END 2024-02-11 15:11 | disposition home or self-care (01) ==
LOC: LBO 15:10
PROVIDERS: Visit Provider Internal Medicine Cardiovascular Disease
DX: I70.90 Unspecified atherosclerosis (principal)
CPT/HCPCS: 36415; 80053; 80061; 85027; 84153

== ENCOUNTER → 2024-03-13 09:20 | Outpatient (BNVA) | payer MEDICARE, SELFPAY | PROVIDERS: Visit Provider Urology | DX: C61 Malignant neoplasm of prostate (principal); R39.89 Other symptoms and signs involving the genitourinary system | CPT/HCPCS: 99214 ==

== ENCOUNTER 2024-03-27 10:40 | Outpatient (CLI) | payer MEDICARE, SELFPAY ==
[2024-03-27 10:47] LABS: Hemoglobin A1C 5.5 % (<5.7)
== END 2024-03-27 10:41 | disposition home or self-care (01) ==
LOC: LBO 10:41
PROVIDERS: Visit Provider Urology
DX: Z13.1 Encounter for screening for diabetes mellitus (principal)
CPT/HCPCS: 36415; 83036

== ENCOUNTER → 2024-04-03 11:45 | Outpatient (BNVA) | payer MEDICARE, SELFPAY | PROVIDERS: Visit Provider Urology | DX: C61 Malignant neoplasm of prostate (principal); R31.0 Gross hematuria; R39.9 Unspecified symptoms and signs involving the genitourinary system | CPT/HCPCS: 81003; 99214 ==

== ENCOUNTER 2024-04-16 01:37 | Outpatient (CLI) | payer MEDICARE, SELFPAY ==
--- NOTE | 2024-04-16 06:30 | DI.CT_ITS ---
Exam(s) CT ABDOMEN PELVIS WO/W EXAM: CT ABDOMEN PELVIS WO/W CLINICAL HISTORY: hematuria,R31.0. TECHNIQUE: Imaging Protocol: Axial computed tomography images with coronal and sagittal reformatted images were created and reviewed. Images were performed from the lung bases through the ischial tuberosities before IV contrast and fol lowing IV contrast using a 70 second delay, followed by 7 minutes delayed images. CONTRAST MATERIAL: Intravenous: Omnipaque 350 Contrast volume:100 cc Oral: no COMPARISON: CT CT ABDOMEN PELVIS W from 09/02/2019 FINDINGS: Lung Bases: Normal where visualized. Liver: Normal density. No measurable mass. Gallbladder and biliary tract: No biliary dilation. Pancreas: Normal density, no abnormal calcifications or inflammatory process. Spleen: Normal. Kidneys: Normal size, contour and axis. Small nonobstructing stone upper pole of the left kidney. Mu ltiple small renal cysts. The largest cyst at the lower pole of the right kidney which measures 3.8 cm in greatest dimension. No suspicious masses seen. Adrenal glands: No masses seen. Lymph nodes: Within normal limits. Abdominal Aorta: Abdominal portion non-dilated. Moderate calcification. Soft tissues: Unremarkable. Bladder: Trabeculation and marked wall thickening, up to 1.3 cm. Small diverticula are noted. The b ladder is somewhat distended.. No evidence of a mass.No evidence of calculi. Bowel: Stomach unremarkable. No obstruction or bowel wall thickening. Diverticulosis. Increased hailey ntity of stool throughout the colon. The appendix is normal. Peritoneal cavity: No ascites, collection or mesenteric inflammatory response. Bones: Unremarkable for age.. Reproductive organs: The prostate is markedly enlarged and impresses on the base of bladder. Surgica l clips are noted within the prostate. IMPRESSION: No suspicious renal mass. Small nonobstructing stone is present at the upper pole of the left kidney . No evidence of hydronephrosis. Markedly enlarged prostate impressing on the base of the bladder. Marked diffuse bladder wall thicke yelena, trabeculation and small diverticula. RADIATION DOSE DELIVERED: Total DLP DATA REPOSITORY: All CT scans at this facility are submitted to the National Radiology Data Registry (NRDR) Dose Index Registry (DIR) with the [employer] (ACR). RADIATION OPTIMIZATION: All CT scans at this facility use at least one of these dose optimization te chniques: automated exposure control; mA and/or kV adjustment per patient size (includes targeted exa ms where dose is matched to clinical indication); or iterative reconstruction.
[2024-04-16] MEDS: Normal Saline - Diluent 50 ML VIAL IJ ×2 (08:32→08:33)
[2024-04-16] MEDS: Omnipaque 350 MG/ML 100 ML BTL IJ (08:33)
== END 2024-04-16 01:57 ==
LOC: DI 01:37
PROVIDERS: Visit Provider Urology
DX: N40.1 Benign prostatic hyperplasia with lower urinary tract symptoms
CPT/HCPCS: 74178; J3490

== ENCOUNTER 2024-05-26 07:02 | Observation (INO) | payer MEDICARE, SELFPAY ==
[2024-05-26] VITALS (50 sets, daily range): BP systolic 86–156; BP diastolic 34–102; PULSE 0–99; RESP 10–22; TEMP 36.3–37; O2SAT 95–100; BMI 20.1
--- NOTE | 2024-05-26 06:20 | W.ANESPRE ---
General Info Date of Service Date Performed: 05/26/24 Height: 5 ft 6 in Weight: 56.699 kg Body Mass Index (BMI): 20.1 Surgical Procedure: Operation Date: 05/26/24 08:55 Proposed Procedure Side Surgeon p Cystoscopy w/Transurethral Resection Prostate Asif MD Barak Meds Allergies and Home Medications Allergies Allergy/AdvReac Type Severity Reaction Status Date / Time No Known Allergies Allergy Verified 05/26/24 07:34 Home Medication ?Medication ?Instructions ?Recorded amlodipine 10 mg tablet (Norvasc) 5 mg (1/2 x 10 mg) PO DAILY #30 03/02/20 tabs acyclovir 400 mg tablet 400 mg PO BID #20 tabs 04/07/22 atorvastatin 40 mg tablet 40 mg PO DAILY #90 tabs 10/03/22 pantoprazole 40 mg tablet,delayed 40 mg PO DAILY #90 tabs 12/06/23 release tamsulosin 0.4 mg capsule 0.8 mg (2 x 0.4 mg) PO DAILY #180 12/06/23 caps finasteride 5 mg tablet 5 mg PO DAILY #90 tabs 03/13/24 Current Visit Medications: Current Medications Generic Name Dose Route Start Last Admin Trade Name Freq PRN Reason Stop Dose Admin Ringer's Solution 1,000 mls @ 80 mls/hr 05/26/24 06:00 IV 05/26/24 23:59 INFUSION ELIZABETH Cefazolin Sodium/Dextrose 2 gm in 50 mls @ 100 mls/hr 05/26/24 06:00 Ancef Duplex IVPB 05/26/24 23:59 PREOP ELIZABETH IV Miscellaneous Supplies 1 each 05/26/24 06:00 Iv Access IV 05/26/24 23:59 DIRECTED ELIZABETH Sodium Chloride 0 ml 05/26/24 06:00 Normal Saline Flush 10 Ml Syr IV 05/26/24 23:59 PRN PRN Sodium Chloride 0 ml 05/26/24 06:00 Normal Saline 10 Ml Vial IJ 05/26/24 23:59 DIRECTED PRN Sterile Water 0 ml 05/26/24 06:00 Water,Injection,Sterile 10 Ml Vial IJ 05/26/24 23:59 DIRECTED PRN PFSH Active Problems Active Problems: Problem Status Onset Code Gross hematuria Acute R31.0 Lower urinary tract symptoms (LUTS) Acute R39.9 Prostate cancer Chronic C61 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 Hyperlipidemia Acute E78.5 Hypertension Chronic I10 Elevated PSA Acute R97.20 Urinary retention Acute R33.9 Viral gastroenteritis Acute A08.4 Medical History Medical History Diverticulosis Tobacco Smoking/Tobacco Use Status: Never Alcohol Alcohol Intake: former Substance Use Substance use: Daily Substance use type: does not use and marijuana Vital Signs and Lab Results Vital Signs Most Recent Vital Signs in EMR: Temp Pulse Resp BP Pulse Ox 36.4 C L 63 16 155/85 H 98 05/26/24 07:10 05/26/24 07:10 05/26/24 07:10 05/26/24 07:10 05/26/24 07:10 Lab Results Blood Type / Crossmatch: No Data to Display Complete Blood Count: No Data to Display Complete Metabolic Panel: No Data to Display Liver Function Panel: No Data to Display Coagulation Panel: No Data to Display Cardiac Panel: No Data to Display Arterial Blood Gas: No Data to Display Venous Blood Gas: No Data to Display Pancreas Panel: No Data to Display Thyroid Panel: No Data to Display Infectious Disease: No Data to Display Blood Cultures: No Data to Display Toxicology Panel: No Data to Display Anesthesia Assessment and Plan Anesthesia History Personal History: No History of Anesthesia Complications Family History: No Family History of Anesthesia Complications Exercise Tolerance Exercise Tolerance: Metabolic Equivalents>4 Cardiac & Pulmonary Exam Cardiac Exam: Normal S1/S2 Heart Sounds Pulmonary Exam: Clear Bilateral Breath Sounds Implantable Cardiac Device Does patient have a Pacemaker or an ICD?: No Airway Exam Known Difficult Airway: No Mallampati Class: 2 Mouth Opening: Normal (> 3cm) Thyromental Distance: Less than 3 cm Neck Range of Motion: Limited ROM Neck Circumference: Normal Teeth Condition: Normal Dentition ASA Classification ASA Score: ASA 2 Emergency Case?: No NPO Status NPO Status: NPO Clears >2 hours, Solids >8 hours Anesthesia Plan Resuscitation Status: Full Code Anesthesia Technique: General Anesthesia Airway Planned: Endotracheal Tube Monitors Used: Standard Monitors Preoperative Comments:: 78 to male for TURP. Sig PMHx: HTN (amlodipine), GERD (pantoprazole. states likely diet related), never smoker, Plan for GAETT due to potential longer surgical time.
[2024-05-26] MEDS: Lactated Ringers 1,000 ML 80 ML IV ×2 (07:49→12:31)
--- NOTE | 2024-05-26 08:23 | HPE_ITS ---
Date of service: 05/26/24 Time of Service: 08:23 Assessment and Plan Assessment and plan (1) Lower urinary tract symptoms (LUTS): Status: Acute (2) Prostate cancer: Status: Chronic Assessment and plan: There has been no sign of progression of his prostate cancer so there is no indication that he needs definitive prostate cancer treatment at this time. It seems reasonable to go ahead with treatment for his lower urinary tract symptoms as he has failed both the UroLift procedure and maximal medical therapy. After discussing all of his treatment options, he is elected to move ahead with transurethral resection of the prostate. We plan on admitting him to the hospital following the procedure for continuous bladder irrigation. Ultimately, we should be able to discontinue all of his prostate medications as he heals from his surgery. History of Present Illness History of Present Illness Chief Complaint: Lower urinary tract symptoms Narrative: This is a 78-year-old gentleman who has a long history of lower urinary tract symptoms. He had undergone a UroLift procedure in the past. He did not have much improvement in his symptoms however. He does have a history of a slightly elevated PSA. He underwent ultrasound- guided biopsies of the prostate that showed a low risk disease. He has been monitored with an active surveillance protocol. Repeat biopsies and multiparameter prostate MRIs have not shown any progression of his low risk disease. He has been on maximal medical management of his lower urinary tract symptoms, but his symptoms have progressed. He presents for transurethral resection of the prostate. Review of Systems Narrative: No fevers or chills No vision change or dysphasia No diabetes or thyroid dysfunction No shortness of breath, cough or hemoptysis No chest pain or palpitations GERD. No hepatitis, ulcers, jaundice No seizures, strokes or peripheral neuropathy No bleeding disorders or anemia No gout PFSH All Active Problems Gross hematuria (Acute) Lower urinary tract symptoms (LUTS) (Acute) Prostate cancer (Chronic) Atherosclerotic vascular disease (Acute) Hyperlipidemia (Acute) Hypertension (Chronic) Elevated PSA (Acute) Urinary retention (Acute) Viral gastroenteritis (Acute) Medical History Diverticulosis Social History Smoking/Tobacco Use Status: Never Smoking risk assessment performed?: Yes Alcohol Intake: former Drug use: Daily Substance use type: does not use and marijuana Housing: house Do you feel safe at home: Yes Do you feel safe in your relationship?: Yes Meds Allergies and Home Medications Allergies Allergy/AdvReac Type Severity Reaction Status Date / Time No Known Allergies Allergy Verified 05/26/24 07:34 Home Medications ?Medication ?Instructions ?Recorded ?Confirmed ?Type amlodipine 10 mg tablet (Norvasc) 5 mg (1/2 x 10 mg) PO DAILY #30 03/02/20 03/06/27 Rx tabs acyclovir 400 mg tablet 400 mg PO BID #20 tabs 04/07/22 05/23/24 Rx atorvastatin 40 mg tablet 40 mg PO DAILY #90 tabs 10/03/22 05/26/24 Rx pantoprazole 40 mg tablet,delayed 40 mg PO DAILY #90 tabs 12/06/23 05/26/24 Rx release tamsulosin 0.4 mg capsule 0.8 mg (2 x 0.4 mg) PO DAILY #180 12/06/23 05/26/24 Rx caps finasteride 5 mg tablet 5 mg PO DAILY #90 tabs 03/13/24 05/23/24 Rx Exam Const General: cooperative Neck Neck: supple Resp Effort & Inspection: normal respiratory effort Auscultation: clear to auscultation bilaterally Cardio Rate: regular rate Rhythm: regular rhythm GI Palpation: soft and no masses Neuro General: patient alert, patient awake and patient oriented x3 Results Last Vital Signs Temp 36.4 C L 05/26/24 07:10 Pulse 63 05/26/24 07:10 Resp 16 05/26/24 07:10 BP 155/85 H 05/26/24 07:10 Pulse Ox 98 05/26/24 07:10 Time Spent Time spent with Patient: <40 minutes Time was spent: other
[2024-05-26] MEDS: ceFAZolin 2 GM/50 ML BAG IVPB (08:55)
[2024-05-26] MEDS: Lidocaine 2% Jelly 11 ML SYR (09:24)
--- NOTE | 2024-05-26 09:32 | PROST_PTH ---
PATIENT: Bennett Meza LOC: U#:[id number] AGE/SX: 78/M ROOM: 226 RE05/26/[address]: Asif Cancino MD : 1945 BED: A DIS: 05/27/2024 SPEC #: [id number] RECD: 05/26/24 12:23 STATUS: SOUT REQ #: [id number] JOB: 05/26/24 09:[address]: Asif Cancino DEPT: Surgical Specimen RECD BY: Crys Barahona ENTERED: 05/26/24 12:24 SP TYPE: PROST OTHR DR: Jackeline Acosta MD Tissues: 1 - PROSTATE CURRETTINGS Procedures: GROSS AND MICRO LEVEL 4 IMMUNOPEROXIDASE STAIN Comments: [id number]
[2024-05-26 11:16] LABS: HGB 11.3 g/dL (13.5-17.5); MCH 30.4 pg (27.0-33.0); MCHC 33.2 % (32.0-36.0); MCV 91 fL (80-95); MPV 9.3 fL (8.0-11.0); Platelet Count 211 10^3/uL (130-400); RBC 3.72 10^6/uL (4.36-5.78); RDW 14.5 % (11.8-14.1); WBC 9.83 10^3/uL (4.4-10.8)
--- NOTE | 2024-05-26 11:40 | W.PM.OP ---
Operative Note Operative Note PRE-OP DIAGNOSIS: Lower urinary tract symptoms POST-OP DIAGNOSIS: same PROCEDURE: Cystoscopy with transurethral resection of prostate SURGEON: Asif Cancino ANESTHESIA TYPE: General LMA/ETT Refer to Anesthesia Record ESTIMATED BLOOD LOSS: 750 PATHOLOGY: other (Prostate chips) COMPLICATIONS: None Patient was transported to: PACU Patient's condition: stable Implants: 24 [place]guillan coud? tipped irrigating catheter with 80 cc of sterile water in the balloon Indications: This is a 78-year-old gentleman who has a history of lower urinary tract symptoms. He underwent a UroLift procedure in the past, but his symptoms persisted. He has failed maximal medical therapy and presents now for transurethral resection Findings: Enlarged prostate with prominent median lobe Procedure Description: The patient was given IV antibiotics and brought to the operating room on 05/26/2024. After successful induction of general anesthesia, he was placed in the dorsal lithotomy position. His genitalia was prepped and draped. 2% Xylocaine jelly was instilled into the urethra. A 24 Anguillan resectoscope sheath was passed through the urethra into the bladder. The urethra and bladder were inspected with the 30 degree lens. The pendulous, bulbar and membranous urethra was all appeared normal with no strictures. The prostatic urethra showed lateral lobe enlargement with a prominent median lobe as well. The bladder neck was entered and the bladder mucosa was inspected. The bladder was heavily trabeculated with multiple diverticuli and cellules present. No stones were identified. No papillary or nodular lesions were seen. Using an Pena resectoscope and bipolar cautery, transurethral resection of the prostate was performed. On multiple occasions, remnants of his UroLift device were identified and removed. Our resection went from the bladder neck out to the Leigh montanum. The depth of the resection was down to the prostatic capsule. All resected tissue was evacuated and sent to pathology for permanent section. Vaporization of the prostate down to the prostatic capsule was performed using the bipolar button. The prostate was quite vascular but we were able to control bleeding at the end of the procedure with the bipolar button. We then removed the resectoscope and passed a coud? tipped irrigating catheter through the urethra into the bladder. The catheter balloon was inflated with 50 cc of sterile water and continuous bladder irrigation was begun. The irrigation was still a bit pink, so I added an additional 30 cc of sterile water to the balloon and placed traction on the catheter. The irrigation then became crystal-clear. The patient tolerated this procedure well with no complications. He was taken to the recovery room in stable condition. Date of Procedure: 05/26/24
[2024-05-26] MEDS: fentaNYL 100 MCG/2 ML VIAL IVP ×2 (11:58→12:14)
--- NOTE | 2024-05-26 13:24 | W.ANESPOSTOP ---
Postoperative Evaluation Date, Time and Location Date Performed: 05/26/24 Time Performed: 13:24 Patient Location: PACU Vital Signs Most Recent Imported Vital Signs: Most Recent Vital Signs Temp Pulse Resp BP Pulse Ox 36.8 C 63 16 155/85 H 98 05/26/24 13:09 05/26/24 07:10 05/26/24 07:10 05/26/24 07:10 05/26/24 07:10 Pain Score Most Recent Pain Score: Most Recent Pain Score Pain Level 7 05/26/24 13:09 Assessment Mental Status: Awake (Alert & Oriented to Patient Baseline) Airway and Respiratory Function: Patent airway with normal (patient baseline) respiratory exam Cardiovascular Function: Hemodynamically Stable (BP much improved after 1 u PRBCs) Hydration Status: Adequately Hydrated Nausea & Vomiting: No Nausea or Vomiting Pain: Pain is tolerable per patient Peripheral Nerve Block: Patient did not receive a nerve block
[2024-05-26] MEDS: Ketorolac 15 MG/ML VIAL IVP (14:09)
[2024-05-26] MEDS: Oxybutynin 5 MG TAB PO (14:23)
[2024-05-26] MEDS: Normal Saline Flush 10 ML SYR IV (14:25)
[2024-05-26] MEDS: ceFAZolin 1 GM/50 ML BAG IVPB ×2 (14:25→22:07)
[2024-05-26] MEDS: traMADol 50 MG TAB PO (15:28)
--- NOTE | 2024-05-26 16:18 | W.PC.ACHO ---
Registration Status: Primary Language: Preferred Language: Medical / Surgical History (Last Reviewed 05/26/24 @ 07:37 by Sandra Ku) Diverticulosis Most Recent Vital Signs Temperature 36.8 C 05/26/24 16:07 Temperature Source Temporal Artery Scan 05/26/24 16:07 Pulse 81 05/26/24 16:07 Pulse Rhythm Regular 05/26/24 07:10 Pulse 77 05/26/24 13:31 Respiratory Rate 16 05/26/24 16:07 Respiratory Depth Normal 05/26/24 07:10 Blood Pressure 138/93 H 05/26/24 16:07 Blood Pressure Mean 110 05/26/24 13:30 Pulse Oximetry 96 05/26/24 16:07 Respiratory End-tidal CO2 31 05/26/24 12:51 Oxygen Delivery Method Room Air 05/26/24 16:07 Oxygen Flow Rate 0 05/26/24 16:07 Pain Level 9 05/26/24 15:28 Allergies No Known Allergies Allergy (Verified 05/26/24 07:34) Active Medications Generic Name Dose Route Start Last Admin Trade Name Freq PRN Reason Stop Dose Admin Ringer's Solution 1,000 mls @ 80 mls/hr 05/26/24 06:00 05/26/24 12:31 IV 05/26/24 23:59 80 mls/hr INFUSION ELIZABETH Administration Cefazolin Sodium/Dextrose 2 gm in 50 mls @ 100 mls/hr 05/26/24 06:00 05/26/24 09:15 Ancef Duplex IVPB 05/26/24 23:59 Infused PREOP ELIZABETH Infusion Cefazolin Sodium/Dextrose 1 gm in 50 mls @ 100 mls/hr 05/26/24 14:00 05/26/24 16:13 Ancef Duplex IVPB 05/27/24 06:29 Infused Q8H ELIZABETH Infusion Ketorolac Tromethamine 15 mg 05/26/24 11:38 05/26/24 14:09 Ketorolac 15 Mg/Ml Vial IVP 05/31/24 11:37 15 mg Q6H PRN PRN Administration Oxybutynin Chloride 5 mg 05/26/24 11:32 05/26/24 14:23 Oxybutynin 5 Mg Tab PO 5 mg Q6H PRN PRN Administration bladder spasm Sodium Chloride 0 ml 05/26/24 06:00 05/26/24 14:25 Normal Saline Flush 10 Ml Syr IV 05/26/24 23:59 20 ml PRN PRN Administration Tramadol HCl 50 mg 05/26/24 11:38 05/26/24 15:28 Tramadol 50 Mg Tab PO 50 mg Q6H PRN PRN Administration IV IV Catheter Type [Left Forearm Peripheral IV ] IV Catheter Type [Right Hand] Peripheral IV IV Catheter Gauge [Left 16 Forearm] IV Catheter Gauge [Right Hand] 20 Diet Orders Category Date Time Status DIET [Regular/Normal] [DIET] Nutrition 05/26/24 Lunch Active Diagnostics 05/26/24 05/26/24 Range/Units 11:25 10:46 WBC 9.83 (4.4-10.8) 10^3/uL RBC 3.72 L (4.36-5.78) 10^6/uL Hgb 11.3 L (13.5-17.5) g/dL Hct 34.0 L (40.0-50.0) % MCV 91 (80-95) fL MCH 30.4 (27.0-33.0) pg MCHC 33.2 (32.0-36.0) % RDW 14.5 H (11.8-14.1) % Plt Count 211 (130-400) 10^3/uL MPV 9.3 (8.0-11.0) fL ABO/Rh O Positive Blood Type Recheck O Positive Antibody Screen NEGATIVE Crossmatch See Detail Intake and Output - 24 Hour Total 05/06/24 07:21 thru 05/26/24 16:13 Intake Total 1100 Output Total 750 Balance 350 Weight 60.4 kg Intake: IV 1100 Output: Estimated Blood Loss 750 Other: Urine Color [place] Urine Appearance Clear Comment CBI continued thru duration of PACU, 30 cc of balloon removed per Dr Cancino at 1212 Emesis Description None Urinary Catheter Urinary Catheter Date of 05/26/24 Insertion [3-way Urethral] Time of insertion [3-way 11:09 Urethral] Problems (Last Reviewed 05/26/24 @ 07:37 by Sandra Ku) Lower urinary tract symptoms (LUTS) (Acute) Prostate cancer (Chronic) v v v v v v v v v Sending and/or Receiving Nurses: Please use comment section below to note any information pertinent to the patient hand-off not included above. Information / Comments: Report received from PACU, pt has been settled into RM 226. He received one unit of blood in PACU, VSS. Report received from: Nicole BRINE TANK OPERATOR
[2024-05-26] MEDS: Lactated Ringers 1,000 ML 125 ML IV (20:24)
[2024-05-27 01:57] VITALS: TEMP 37.3
[2024-05-27] MEDS: Lactated Ringers 1,000 ML 125 ML IV (02:47)
[2024-05-27] MEDS: ceFAZolin 1 GM/50 ML BAG IVPB (05:36)
[2024-05-27 06:49] LABS: Abs Immature Grans 0.08 10^3/uL (0.0-0.06); Absolute Basophil Count 0.09 10^3/uL (0.0-0.2); Absolute Eosinophil Count 0.14 10^3/uL (0.0-0.7); Absolute Lymphocyte Count 1.25 10^3/uL (1.2-3.4); Absolute Neutrophil Count 12.28 10^3/uL (1.2-6.7); Basophils % 0.6 %; Eosinophils % 0.9 %; HCT 25.4 % (40.0-50.0); HGB 8.6 g/dL (13.5-17.5); Immature Grans % 0.5 %; Lymphocytes % 8.3 %; MCHC 33.9 % (32.0-36.0); MCV 89 fL (80-95); Monocytes % 8.5 %; Neutrophils % 81.2 %; Platelet Count 167 10^3/uL (130-400); RBC 2.87 10^6/uL (4.36-5.78); RDW 14.9 % (11.8-14.1); RDW-SD 48.5 fL; WBC 15.12 10^3/uL (4.4-10.8)
[2024-05-27 07:00] LABS: Absolute Monocyte Count 1.29 10^3/uL (0.1-0.8)
[2024-05-27 07:04] LABS: Anion Gap 10.8 mmol/L (3-11); BUN 13 mg/dL (7-18); CO2 22.2 mmol/L (21.0-32.0); CREATININE 0.7 mg/dL (0.70-1.30); Calcium 7.9 mg/dL (8.5-10.1); Chloride 114 mmol/L (98-107); Estimated GFR 94.31 (mL/min/1.73m2); Glucose 106 mg/dL (74-106); Potassium 3.8 mmol/L (3.5-5.1); Sodium 147 mmol/L (136-145)
[2024-05-27 07:42] LABS: Diff Comment RBC Morph Reviewed; RBC Morphology Normal
[2024-05-27 08:10] VITALS: BP 143/80; PULSE 76; RESP 14; O2SAT 95
[2024-05-27] MEDS: amLODIPine 5 MG TAB PO (08:15)
[2024-05-27] MEDS: Atorvastatin 40 MG TAB PO (08:16)
[2024-05-27] MEDS: Pantoprazole 40 MG TABCR PO (08:16)
--- NOTE | 2024-05-27 08:17 | DSE_ITS ---
Date of service: 05/27/24 Time of Service: 08:17 DS: Diagnosis Discharge Diagnosis (1) Lower urinary tract symptoms (LUTS): Status: Acute (2) Prostate cancer: Status: Chronic Discharge Plan Disposition Patient Disposition: Home Condition: Stable Discharge Details Reason For Visit: Lower Urinary Tract Symptoms Admit Date/Time: 05/26/24 07:02 Admit Provider: Asif Cancino Attending Provider: Asif Cancino Primary Care Provider: Jackeline Acosta Hospital Course Hospital Course: The patient was admitted and taken to the operating room on 05/26/2024. He underwent transurethral resection of the prostate. During the procedure, he had significant acute blood loss resulting in hypotension. He was given 1 unit of packed red blood cells and his blood pressure improved. Following the procedure, an irrigating catheter was maintained, he had continuous bladder irrigation and only required hand irrigation on 1 or 2 occasions and a small clot was evacuated. No additional bleeding was noted. On postoperative day #1, his irrigant was clear. His vital signs were stable. He was comfortable. He was able to tolerate oral nutrition and medications. He is being discharged to home with his Mckeon catheter in place. Home Meds and New Rx's Prescriptions: Continued acyclovir 400 mg tablet 400 mg PO BID Qty: 20 3RF atorvastatin 40 mg tablet 40 mg PO DAILY Qty: 90 3RF tamsulosin 0.4 mg capsule 0.8 mg PO DAILY Qty: 180 3RF pantoprazole 40 mg tablet,delayed release (DR/EC) 40 mg PO DAILY Qty: 90 3RF amlodipine 5 mg tablet 5 mg PO DAILY Qty: 90 3RF Discontinued finasteride 5 mg tablet 5 mg PO DAILY Qty: 90 4RF Discharge Instructions Additional Instructions: Catheter plug to the irrigation port Drainage port of the Mckeon catheter to a leg bag Follow-up of this week to have his catheter removed Additional follow-up appointment in about 2 weeks to review his symptoms and discuss his surgical pathology Activity:: no lifting over 10 pounds Equipment/Supplies:: Mckeon catheter to leg bag Diet:: As Tolerated Discharge Orders Discharge Orders: Discharge Order (Routine); Ordered 05/27/24 Ordered By: Asif Cancino DS: Summary Time Spent with Patient providing and/or coordinating discharge services: Less than 30 minutes Status at Discharge Functional status at discharge: independent ambulation Overall status at discharge: patient is progressing back to baseline Mental Status: mental status grossly normal Speech and Movement: speech and movement normal Mood: congruent mood Affect: normal affect Quality:SDOH Health Related Social Needs: No Data to Display Exam Narrative Exam Narrative: On the morning of discharge, he looks well and comfortable His vital signs are documented elsewhere His chest wall motion is normal. He is not short of breath at rest. His abdomen is soft with no guarding or rebound tenderness His Mckeon catheter is patent and is draining clear output with bladder irrigation at a slow rate He is awake and alert Psych Mental Status: mental status grossly normal Speech and Movement: speech and movement normal Mood: congruent mood Affect: normal affect DS: Data Vitals/I&O Vitals and I&O: Vital Signs Temperature 37.3 C 05/27/24 01:57 Temperature Source Temporal Artery Scan 05/27/24 08:10 Pulse 76 05/27/24 08:10 Pulse Rhythm Regular 05/26/24 13:40 Pulse 77 05/26/24 13:31 Respiratory Rate 14 05/27/24 08:10 Respiratory Effort Normal, Non-Labored 05/26/24 13:40 Respiratory Depth Normal 05/26/24 13:40 Respiratory Pattern Normal 05/26/24 13:40 Blood Pressure 143/80 H 05/27/24 08:10 Blood Pressure Mean 110 05/26/24 13:30 Pulse Oximetry 95 05/27/24 08:10 Respiratory End-tidal CO2 31 05/26/24 12:51 Oxygen Delivery Method Room Air 05/27/24 08:10 Oxygen Flow Rate 0 05/27/24 08:10 Pain Level 5 05/26/24 16:28 Comment RN notified 05/27/24 08:10 Intake & Output 05/26/24 05/26/24 05/27/24 11:59 23:59 11:59 Intake Total 950 / 2927.333 1977.333 / 2927.333 797.917 / 797.917 Output Total 750 / 1650 900 / 1650 Balance 200 / 3701.789 6732.333 / 1277.333 797.917 / 797.917 Weight 60.4 kg 60.4 kg Intake: IV 950 / 7.333 1117.333 / 2067.333 797.917 / 797.917 Oral 860 / 860 Output: Urine 900 / 900 Estimated Blood Loss 750 / 750 Other: Urine Color Bright Red [place] Urine Appearance Hematuria Clear Comment no pain bagged changed. mckeon emptied. Emesis Description None None Data Completed and Pending Labs on day of discharge: Labs from last 24 hours 05/27/24 05/26/24 05/26/24 05:37 11:25 10:46 WBC 15.12 H 9.83 RBC 2.87 L 3.72 L Hgb 8.6 L D 11.3 L Hct 25.4 L 34.0 L MCV 89 91 MCH 30.0 30.4 MCHC 33.9 33.2 RDW 14.9 H 14.5 H Plt Count 167 211 MPV 10.0 9.3 Immature Gran % 0.5 Neutrophils % 81.2 Lymphocytes % 8.3 Monocytes % 8.5 Eosinophils % 0.9 Basophils % 0.6 Nucleated RBC % 0.0 Absolute Neutrophils 12.28 H Absolute Lymphocytes 1.25 Absolute Monocytes 1.29 H Absolute Eosinophils 0.14 Absolute Basophils 0.09 RBC Morphology Normal Sodium 147 H Potassium 3.8 Chloride 114 H Carbon Dioxide 22.2 Anion Gap 10.8 BUN 13 Creatinine 0.7 Est GFR (CKD-EPI 2020) 94.31 Glucose 106 Calcium 7.9 L ABO/Rh O Positive Blood Type Recheck O Positive Antibody Screen NEGATIVE Crossmatch See Detail PFSH All Active Problems Gross hematuria (Acute) Lower urinary tract symptoms (LUTS) (Acute) Prostate cancer (Chronic) Atherosclerotic vascular disease (Acute) Hyperlipidemia (Acute) Hypertension (Chronic) Elevated PSA (Acute) Urinary retention (Acute) Viral gastroenteritis (Acute) Medical History Diverticulosis Social History Smoking/Tobacco Use Status: Never Smoking risk assessment performed?: Yes Alcohol Intake: former Drug use: Daily Substance use type: does not use and marijuana Housing: house Do you feel safe at home: Yes Do you feel safe in your relationship?: Yes Time Spent with Patient Time Spent with Patient: <45 minutes Time was spent: other
--- NOTE | 2024-05-27 08:25 | W.PM.PROGNOT ---
Date of Service Date of service: 05/27/24 Time of Service: 08:25 Assessment and Plan Assessment and plan (1) Prostate cancer: Status: Chronic (2) Lower urinary tract symptoms (LUTS): Status: Acute (3) Acute blood loss anemia: Assessment and plan: He is doing quite well after his surgery. He has had no hypotension or tachycardia since receiving his 1 unit of packed red blood cells yesterday. Based on his urine output, there is no evidence of continued bleeding at this time. We will go ahead and discontinue his bladder irrigation this morning. We will leave his catheter in place and discharge him to home. He will come back into our office later this week to have his catheter removed. Once he starts voiding on his own, we will be able to discontinue his tamsulosin. Subjective Subjective Interval history since last seen: The patient had a comfortable night. He had 1 occasion of clot retention that resolved with hand irrigation. Otherwise, the output has been crystal-clear with no obstruction. He is able to tolerate oral nutrition and medications. He did receive 1 unit of packed red blood cells for acute blood loss during the surgery yesterday. He has no lightheadedness or dizziness this morning. Exam Narrative Exam Narrative: He appears comfortable His vital signs are documented elsewhere in the chart His urine output is crystal clear with bladder irrigation at a slow rate He is awake and alert Objective Last Vital Signs Temp 37.3 C 05/27/24 01:57 Pulse 76 05/27/24 08:10 Resp 14 05/27/24 08:10 BP 143/80 H 05/27/24 08:10 Pulse Ox 95 05/27/24 08:10 Laboratory Results - last 24 hr 05/26/24 05/26/24 05/27/24 10:46 11:25 05:37 WBC 9.83 15.12 H RBC 3.72 L 2.87 L Hgb 11.3 L 8.6 L D Hct 34.0 L 25.4 L MCV 91 89 MCH 30.4 30.0 MCHC 33.2 33.9 RDW 14.5 H 14.9 H Plt Count 211 167 MPV 9.3 10.0 Immature Gran % 0.5 Neutrophils % 81.2 Lymphocytes % 8.3 Monocytes % 8.5 Eosinophils % 0.9 Basophils % 0.6 Nucleated RBC % 0.0 Absolute Neutrophils 12.28 H Absolute Lymphocytes 1.25 Absolute Monocytes 1.29 H Absolute Eosinophils 0.14 Absolute Basophils 0.09 RBC Morphology Normal Sodium 147 H Potassium 3.8 Chloride 114 H Carbon Dioxide 22.2 Anion Gap 10.8 BUN 13 Creatinine 0.7 Est GFR (CKD-EPI 2020) 94.31 Glucose 106 Calcium 7.9 L ABO/Rh O Positive Blood Type Recheck O Positive Antibody Screen NEGATIVE Crossmatch See Detail Time Spent with Patient Time Spent with Patient: <25 minutes Time was spent: preparing to see the patient(eg.review tests), obtaining and/or reviewing separately otained hiistory, counseling the patient and care coordination
--- NOTE | 2024-05-27 08:54 | INITIAL_ITS ---
Date of service: 05/27/24 Time of Service: 08:54 Care Management Initial Assmt Initial Assessment Reason for Hospitalization: Lower urinary tract symptoms, hx prostate CA, s/p TURP on 05/26/24 Functional Status/Living Situation Patient Presentation: Otoniel was lying in the bed this morning when CM met with him. He was very friendly and talkative. He is s/p TURP done yesterday. He has a discharge order for today, but stated that he is not sure he can go home as he was unable to eat this morning due to nausea and his mckeon was noted to have a clot. His RN came into the room and was going to speak with the urologist. 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 Medications Medication Management: No Issues/Barriers identified Advance Directives Advance Directives: Do you have an Advance Directive: N 05/05/24 11:46 AD On File at [facility]: N 05/05/24 11:46 Date Asked 05/26/24 05/22/24 06:43 AD Date Reviewed COLST On File at [facility] COLST Date Scanned Code Status Resuscitation Status Full Code Insurance Coverage/Financial Issues Insurance: Medicare Part A & B - AARP [facility] Supplemental Care Team Visit Care Team Role Provider Type Jackeline Acosta MD Primary Care Provider [facility] STAFF PHYSICIAN Asif Cancino MD Admit Provider [facility] STAFF PHYSICIAN Attending Provider Discharge Potential Discharge Needs: PCP F/U Appt and Surgical F/U Appt (urology- Dr. Cancino on 05/30) Anticipated Barriers to Discharge: None Identified Patient/Family Education Needs: Review discharge instructions, discuss Ask Me Three Transportation: Private vehicle Plan: Anticipate that Otoniel will be discharged home with no new orders. He will be discharged with a mckeon catheter, and f/u with Dr. Cancino on 05/30/24. He will also f/u with his PCP and continue per his plan of care. He will transport home in a private vehicle. CM will continue to follow. Social Determinants of Health Screening Social Determinants of Health last assessed: 05/27/24 Will the Patient Participate in the Screening?: Yes Do you worry about having a steady place to live?: no Problems where you live: no known problems In the past 12 months, have you had to go without electric, gas, oil or water in your home?: no Have you or anyone in your house had to go without enough food to eat?: no Has lack of transportation kept you from medical appointments or from doing things needed for daily living?: no Has anyone in your life made you feel unsafe or unsupported?: no How hard is it for you to pay for the very basics like food, housing, medical care, and heating? Would you say it is:: Not hard at all Do you want help finding or keeping work or a job?: I do not need or want help If for any reason you need help with day-to-day activities such as bathing, preparing meals, shopping, managing finances, etc., do you get the help you need?: I don?t need any help How often do you feel lonely or isolated from those around you?: Never Do you speak a language other than Irish at home?: No Does the patient want assistance with any of the above?: No PFSH All Active Problems (Updated 05/27/24 @ 08:25 by Asif Cancino MD) Gross hematuria (Acute) Lower urinary tract symptoms (LUTS) (Acute) Prostate cancer (Chronic) Atherosclerotic vascular disease (Acute) Hyperlipidemia (Acute) Hypertension (Chronic) Elevated PSA (Acute) Urinary retention (Acute) Viral gastroenteritis (Acute) Medical History (Updated 05/27/24 @ 08:25 by Asif Cancino MD) Acute blood loss anemia Diverticulosis Social History Smoking/Tobacco Use Status: Never Smoking risk assessment performed?: Yes Alcohol Intake: former Drug use: Daily Substance use type: does not use and marijuana Housing: house Do you feel safe at home: Yes Do you feel safe in your relationship?: Yes Readmission Within the Past 30 Days Yes or No: No
[2024-05-27 10:38] VITALS: TEMP 36.9
== END 2024-05-27 13:24 | disposition home or self-care (01) ==
LOC: MS 05-27 08:20 → PDS 05-28 12:00
PROVIDERS: Nurse Anesthetist, Certified Registered; Admitting Provider Urology; PCP Internal Medicine Cardiovascular Disease; Visit Provider Urology
PROC: 0VT08ZZ Resection of Prostate, Via Natural or Artificial Opening Endoscopic (ICD-10-PCS; CPT 52601; principal; 2024-05-26 08:45)
DX: C61 Malignant neoplasm of prostate (principal); R31.0 Gross hematuria; R33.9 Retention of urine, unspecified; I70.90 Unspecified atherosclerosis; D62 Acute posthemorrhagic anemia; I10 Essential (primary) hypertension; E78.5 Hyperlipidemia, unspecified; Z79.899 Other long term (current) drug therapy
CPT/HCPCS: 52601; 80048; 85027; 86850; 86900; 86901; 86920; 88305; 96361; 96365; 96366; 96375; 99223; 85025; 88361; G0378; J0131; J0690; J1100; J1805; J1885; J2371; J2405; J2704; J3010; P9016

== ENCOUNTER → 2024-05-30 07:40 | Outpatient (BNVA) | payer MEDICARE, SELFPAY | PROVIDERS: PCP Internal Medicine Cardiovascular Disease; Visit Provider Urology | DX: R33.9 Retention of urine, unspecified (principal) | CPT/HCPCS: 99213 ==

== ENCOUNTER → 2024-06-06 10:28 | Outpatient (BNVA) | payer MEDICARE, SELFPAY | PROVIDERS: PCP Internal Medicine Cardiovascular Disease; Visit Provider Urology | DX: Z90.79 Acquired absence of other genital organ(s) (principal); Z48.816 Encounter for surgical aftercare following surgery on the genitourinary system | CPT/HCPCS: 99024 ==

== ENCOUNTER 2024-06-06 11:35 | Outpatient (CLI) | payer MEDICARE, SELFPAY ==
[2024-06-06 13:01] LABS: HCT 29.6 % (40.0-50.0); HGB 9.5 g/dL (13.5-17.5); MCHC 32.1 % (32.0-36.0); MCV 93 fL (80-95); MPV 9.1 fL (8.0-11.0); Platelet Count 470 10^3/uL (130-400); RBC 3.17 10^6/uL (4.36-5.78); RDW 14.2 % (11.8-14.1); RDW-SD 48.5 fL; WBC 11.89 10^3/uL (4.4-10.8)
== END 2024-06-06 11:36 | disposition home or self-care (01) ==
PROVIDERS: PCP Internal Medicine Cardiovascular Disease; Visit Provider Internal Medicine Cardiovascular Disease
DX: D62 Acute posthemorrhagic anemia (principal)
CPT/HCPCS: 36415; 85027

== ENCOUNTER 2024-08-22 07:31 | Emergency (ER) | payer MEDICARE, SELFPAY ==
[2024-08-22] VITALS (26 sets, daily range): BP systolic 136–198; BP diastolic 78–99; PULSE 58–109; RESP 12–26; TEMP 36.6; O2SAT 95–100
--- NOTE | 2024-08-22 07:45 | DI.CT_ITS ---
Exam(s) CT CHEST/ABD/PEL W EXAM: CT CHEST/ABD/PEL W CLINICAL HISTORY: vomiting, hx of sliding hiatal hernia. TECHNIQUE: Imaging Protocol: Axial computed tomography images with coronal and sagittal reformatted images were created and reviewed. Computer aided detection (CAD) was utilized. CONTRAST MATERIAL: Intravenous: Omnipaque 350 Contrast volume:100 ml Oral: / no COMPARISON: CT CT ABDOMEN PELVIS WO/W from 04/16/2024 FINDINGS: CHEST: Pulmonary parenchyma: No consolidation. No dominant measurable mass. Mild emphysematous changes. Tracheobronchial tree: No bronchiectasis. No mucous plugging.No bronchial wall thickening. Pleura: No effusion or pneumothorax. Mediastinum: High-density material at the GE junction, likely postsurgical. No visible hiatal hernia. Pulmonary arteries: No visible emboli. Cardiovascular: Coronary artery calcifications are present. The heart size is normal. No pericardial effusion. Thoracic aorta non-dilated. Bones: Degenerative changes in the spine. No lytic or blastic lesions.No compression fractures. Soft tissues: Unremarkable. ABDOMEN and PELVIS: Liver: Normal density. No suspicious mass. Gallbladder and biliary tract: No evidence of stones or wall thickening. No biliary dilatation. Pancreas: Normal density, no abnormal calcifications or inflammatory process. Spleen: Normal. Kidneys: Normal size, contour and axis. No radiodense stones are visible.. Previously noted tiny stone at the upper pole of the left kidney is not visible likely secondary to presence of IV contrast. No obstructive uropathy. Stable bilateral simple cysts. No suspicious masses are seen. Adrenal glands: No masses seen. Aorta: Abdominal portion non-dilated. Lymph nodes: Within normal limits. Soft tissues: Unremarkable. Bladder: mIld wall thickening. Bowel: No obstruction or bowel wall thickening. Large quantity of stool from the splenic fracture through the rectum. The rectum is distended with stool, consistent with constipation. Sigmoid diverticulosis. No visible diverticulitis. Peritoneal cavity: No ascites. No focal collection. No mesenteric inflammatory response. No free air. Bones: Degenerative changes throughout the spine. Reproductive organs: Patient is now status post prostate surgery. IMPRESSION: No acute abnormality in the chest, abdomen or pelvis. Increased stool in the descending colon through rectum consistent with constipation. There is tracheal assist without evidence of diverticulitis. RADIATION DOSE DELIVERED: 238.94mGy.cm Total DLP DATA REPOSITORY: All CT scans at this facility are submitted to the National Radiology Data Registry (NRDR) Dose Index Registry (DIR) with the [employer] (ACR). RADIATION OPTIMIZATION: All CT scans at this facility use at least one of these dose optimization techniques: automated exposure control; mA and/or kV adjustment per patient size (includes targeted exams where dose is matched to clinical indication); or iterative reconstruction.
--- NOTE | 2024-08-22 07:45 | RT.EKG_ITS ---
APPROVED REPORT Exam: Resting ECG Reason for Exam: chest pain Patient Location: E HR:77 bpm ECG Measurements Heart Rate 77 AXIS NJ 184 P 62 QRSd 145 QRS -60 QT 444 T -15 QTc 498 Conclusion Sinus rhythm...normal P axis, V-rate 60- 99 RBBB and LAFB...QRSd >120mS, axis(-40,240) Physician: relatively unchanged from prior ekg in 2019
[2024-08-22 08:24] LABS: Lactate 1.3 mmol/L (<or=2.0)
[2024-08-22 08:25] LABS: Abs Immature Grans 0.06 10^3/uL (0.0-0.06); Absolute Basophil Count 0.08 10^3/uL (0.0-0.2); Absolute Eosinophil Count 0.19 10^3/uL (0.0-0.7); Absolute Monocyte Count 0.97 10^3/uL (0.1-0.8); Basophils % 0.6 %; Eosinophils % 1.5 %; HCT 46.2 % (40.0-50.0); HGB 15.2 g/dL (13.5-17.5); Immature Grans % 0.5 %; Lymphocytes % 10.1 %; MCH 27.6 pg (27.0-33.0); MCHC 32.9 % (32.0-36.0); MCV 84 fL (80-95); MPV 9.4 fL (8.0-11.0); Monocytes % 7.6 %; Neutrophils % 79.7 %; Platelet Count 224 10^3/uL (130-400); RDW 14.5 % (11.8-14.1); RDW-SD 44.4 fL; WBC 12.71 10^3/uL (4.4-10.8)
[2024-08-22] MEDS: Lactated Ringers 1,000 ML 1000 ML IV (08:25)
[2024-08-22 08:26] LABS: Absolute Lymphocyte Count 1.28 10^3/uL (1.2-3.4); Absolute Neutrophil Count 10.13 10^3/uL (1.2-6.7)
[2024-08-22] MEDS: Ondansetron 4 MG/2 ML VIAL IVP (08:26)
[2024-08-22 08:46] LABS: ALT 26 U/L (16-63); AST 29 U/L (15-37); Albumin 4.5 g/dL (3.4-5.0); Alkaline Phosphatase 67 U/L (46-116); Anion Gap 15.4 mmol/L (3-11); BUN 19 mg/dL (7-18); Bilirubin, Total 0.8 mg/dL (0.2-1.0); CO2 23.6 mmol/L (21.0-32.0); CREATININE 1.3 mg/dL (0.70-1.30); Calcium 9.6 mg/dL (8.5-10.1); Chloride 100 mmol/L (98-107); Estimated GFR 56.23 (mL/min/1.73m2); Glucose 98 mg/dL (74-106); Lipase 20 U/L (<78); Potassium 3.4 mmol/L (3.5-5.1); Sodium 139 mmol/L (136-145); Total Protein 8.5 g/dL (6.4-8.2); Troponin I 22 ng/L (<or=76)
[2024-08-22] MEDS: Normal Saline - Diluent 50 ML VIAL IJ (09:11)
[2024-08-22] MEDS: Omnipaque 350 MG/ML 100 ML BTL IJ (09:12)
--- NOTE | 2024-08-22 09:18 | W.ED.GENAD ---
Discharge Plan Disposition Patient Disposition: Home Condition: Good Discharge Details Clinical Impression: Nausea & vomiting, Dehydration Primary Care Provider: Jackeline Acosta ED Provider: Compa Ferro Home Meds and New Rx's Prescriptions: New sucralfate [Carafate] 1 gram tablet 1 g PO BID Qty: 60 0RF famotidine 40 mg tablet 40 mg PO DAILY Qty: 90 0RF pantoprazole [Protonix] 40 mg tablet,delayed release (DR/EC) 40 mg PO DAILY Qty: 90 0RF Continued atorvastatin 40 mg tablet 40 mg PO DAILY Qty: 90 3RF pantoprazole 40 mg tablet,delayed release (DR/EC) 40 mg PO DAILY Qty: 90 3RF Patient Comments: Pt reports not taking this 08/22/24 amlodipine 5 mg tablet 5 mg PO DAILY Qty: 90 3RF oxybutynin chloride 5 mg tablet 5 mg PO BID Qty: 180 3RF Patient Comments: Pt reports not taking this 08/22/24 Discharge Instructions Instructions: Nausea and Vomiting, Adult ED Additional Instructions: At this time your workup has returned reassuring. Your pancreas numbers are normal, you were a bit dehydrated. Your CT imaging shows no significant abnormality. Please take the antacid medications as prescribed. I have given you an additional prescription for Protonix as you have previously had. We will also start famotidine and Carafate. Please follow-up closely with your surgeon for reassessment and potential repeat EGD. If you notice any worsening of your symptoms, or any new symptoms such as vomiting, diarrhea, fever, chills, shortness of breath, chest pain, numbness, weakness, or fainting , please return immediately to the emergency department for reevaluation. Please follow up with your primary care provider as soon as possible for reassessment and reevaluation. As always, it was a pleasure participating in your medical care today. Referrals: Jackeline Acosta MD [Primary Care Provider, Cardiology] HPI General Date/Time Provider Initiated Documentation: 08/22/24 07:57. HPI Narrative: This is a 78-year-old male with a past medical history of prostate cancer which has been managed, hypertension, high cholesterol, previous hiatal/sliding hernia which was surgically resolved, who presents today for evaluation of vomiting for the last 3 days. Patient states that for the last few months he has had early fullness when eating, and has been losing about 25 pounds over the last 6 months. For the last 3 days he has had 0 appetite, every time he tries to eat he vomits. He denies any evidence of significant or persistent bright red blood or coffee-ground's in his emesis. He denies any bloody diarrhea or loose stools. He denies any other sick contacts. He denies any chest pain or chest heaviness or tightness. He denies any significant epigastric pain or discomfort. No other complaints at this time. No other modifying factors. Related Data Home Medications ?Medication ?Instructions ?Recorded ?Confirmed atorvastatin 40 mg tablet 40 mg PO DAILY #90 tabs 10/03/22 08/22/24 pantoprazole 40 mg tablet,delayed 40 mg PO DAILY #90 tabs 12/06/23 06/06/24 release amlodipine 5 mg tablet 5 mg PO DAILY #90 tabs 05/27/24 08/22/24 oxybutynin chloride 5 mg tablet 5 mg PO BID urinary frequency #180 07/31/24 tabs famotidine 40 mg tablet 40 mg PO DAILY #90 tabs 08/22/24 pantoprazole 40 mg tablet,delayed 40 mg PO DAILY #90 tabs 08/22/24 release (Protonix) sucralfate 1 gram tablet (Carafate) 1 g PO BID #60 tabs 08/22/24 Previous Rx's ?Medication ?Instructions ?Recorded atorvastatin 40 mg tablet 40 mg PO DAILY #90 tabs 10/03/22 pantoprazole 40 mg tablet,delayed 40 mg PO DAILY #90 tabs 12/06/23 release amlodipine 5 mg tablet 5 mg PO DAILY #90 tabs 05/27/24 oxybutynin chloride 5 mg tablet 5 mg PO BID urinary frequency #180 07/31/24 tabs famotidine 40 mg tablet 40 mg PO DAILY #90 tabs 08/22/24 pantoprazole 40 mg tablet,delayed 40 mg PO DAILY #90 tabs 08/22/24 release (Protonix) sucralfate 1 gram tablet (Carafate) 1 g PO BID #60 tabs 08/22/24 Allergies Allergy/AdvReac Type Severity Reaction Status Date / Time No Known Allergies Allergy Verified 08/22/24 07:37 General Stated Complaint: Nausea/Vomit/Diar JOSH: 3 Exam Narrative Exam Narrative: 1.Const: Well-nourished, Well-developed, appearing stated age 2.Eyes: PERRL, no conjunctival injection, and symmetrical lids. 3.ENT: Atraumatic external nose and ears. Dry MM. Neck: Symmetric, trachea midline, No thyromegaly. 4.CVS: +S1/S2, Peripheral pulses 2+ and equal in all extremities. Brisk capillary refill in all extremities. 5.RESP: Unlabored respiratory effort. Clear to auscultation bilaterally. No wheezes rales or rhonchi 6.GI: Soft, Nontender/Nondistended, No hepatosplenomegaly. No guarding or rebound. No pain at McBurney's point, negative Willams sign. Bowel sounds normal. 7.MSK: Normocephalic/Atraumatic, Extremities w/o deformity or ttp No cyanosis or clubbing, Normal movement of all extremities 8.Skin: Warm, Dry. No rashes or lesions. 9.Neuro: 911 telecommunicator II-XII grossly intact. Sensation grossly intact, no focal neurologic deficits. 10.Psych: (AAO) x3. Appropriate mood and affect Course Vital Signs Vital signs: Vital Signs Temperature 36.6 C 08/22/24 07:32 Pulse 77 08/22/24 07:32 Respiratory Rate 15 08/22/24 07:32 Blood Pressure 181/90 H 08/22/24 07:32 Pulse Oximetry 98 08/22/24 07:32 Temperature 36.6 C 08/22/24 07:37 Temperature Source Oral 08/22/24 07:37 Pulse 77 08/22/24 08:50 Pulse 85 08/22/24 08:50 Respiratory Rate 25 H 08/22/24 08:50 Blood Pressure 198/89 H 08/22/24 08:31 Blood Pressure Mean 126 08/22/24 08:31 Blood Pressure Position Sitting 08/22/24 07:37 Pulse Oximetry 96 08/22/24 08:50 Oxygen Delivery Method Room Air 08/22/24 07:37 Oxygen Flow Rate 0 08/22/24 07:37 Pain Level 0 08/22/24 07:37 Lab/Test Results Lab/Test Results: Laboratory Tests Range/Units 08/22/24 08:15 WBC (4.4-10.8) 10^3/uL 12.71 H RBC (4.36-5.78) 10^6/uL 5.50 Hgb (13.5-17.5) g/dL 15.2 Hct (40.0-50.0) % 46.2 MCV (80-95) fL 84 MCH (27.0-33.0) pg 27.6 MCHC (32.0-36.0) % 32.9 RDW (11.8-14.1) % 14.5 H Plt Count (130-400) 10^3/uL 224 MPV (8.0-11.0) fL 9.4 Immature Gran % % 0.5 Neutrophils % % 79.7 Lymphocytes % % 10.1 Monocytes % % 7.6 Eosinophils % % 1.5 Basophils % % 0.6 Nucleated RBC % (0.0-0.3) % 0.0 Absolute Neutrophils (1.2-6.7) 10^3/uL 10.13 H Absolute Lymphocytes (1.2-3.4) 10^3/uL 1.28 Absolute Monocytes (0.1-0.8) 10^3/uL 0.97 H Absolute Eosinophils (0.0-0.7) 10^3/uL 0.19 Absolute Basophils (0.0-0.2) 10^3/uL 0.08 VBG Lactate (<or=2.0) mmol/L 1.3 Sodium (136-145) mmol/L 139 Potassium (3.5-5.1) mmol/L 3.4 L Chloride (98-107) mmol/L 100 Carbon Dioxide (21.0-32.0) mmol/L 23.6 Anion Gap (3-11) mmol/L 15.4 H BUN (7-18) mg/dL 19 H Creatinine (0.70-1.30) mg/dL 1.3 Est GFR (CKD-EPI 2020) (mL/min/1.73m2) 56.23 Glucose (74-106) mg/dL 98 Calcium (8.5-10.1) mg/dL 9.6 Total Bilirubin (0.2-1.0) mg/dL 0.8 AST (15-37) U/L 29 ALT (16-63) U/L 26 Alkaline Phosphatase (46-116) U/L 67 Troponin I (<or=76) ng/L 22 Total Protein (6.4-8.2) g/dL 8.5 H Albumin (3.4-5.0) g/dL 4.5 Lipase (<78) U/L 20 Medical Decision Making This is a 78-year-old male with a past medical history of prostate cancer which has been managed, hypertension, high cholesterol, previous hiatal/sliding hernia which was surgically resolved, who presents today for evaluation of vomiting for the last 3 days. Patient states that for the last few months he has had early fullness when eating, and has been losing about 25 pounds over the last 6 months. For the last 3 days he has had 0 appetite, every time he tries to eat he vomits. He denies any evidence of significant or persistent bright red blood or coffee-ground's in his emesis. He denies any bloody diarrhea or loose stools. He denies any other sick contacts. He denies any chest pain or chest heaviness or tightness. He denies any significant epigastric pain or discomfort. No other complaints at this time. No other modifying factors. Exam demonstrates a well-appearing male, no guarding or rebound, dry mucous membranes, notably benign abdominal exam. Bowel sounds are present. Differential is broad but includes gastric ulcer, pancreatitis, viral gastroenteritis. With no pain or pain out of proportion symptoms appear inconsistent with acute mesenteric ischemia. No abdominal pulsations to suggest AAA. No left lower quadrant pain to suggest diverticulitis. We will rehydrate, give antiemetics, get CT imaging, monitor closely and reassess. 1 PM Laboratory workup has returned return, serial troponins are normal, mildly elevated white count at 12, electrolytes are normal, patient feels much better after receiving 1.5 L of IV fluids, as well as GI cocktail and antiemetics. Patient is tolerated p.o. well after this. He feels significantly improved. Lactate normal. CT scan shows no evidence of acute process, there is some constipation, but no evidence of stomach thickening, mass, or concerning hernia. At this time there is no evidence of significant life-threatening etiology. I am concerned that the patient may be suffering from mild gastric ulcers causing his symptoms versus gastritis. Will start him on Carafate, restart his Protonix and famotidine. Recommend outpatient follow-up with his surgeons and property insurance claims examiner at [facility]. Patient feels comfortable with plan. Discussed red flags for which to return. I have extensively reviewed the treatment plan and discharge instructions with the patient. I have addressed all patient concerns at this time. The patient was made aware of what symptoms to monitor for that would warrant a return to the emergency department. Discussed the plan with the patient, they demonstrate verbal understanding and agreement with our assessment and plan at this time. The documentation in this chart was dictated using [employer] dictation software. Please excuse any dictation errors. FINDINGS:Addendum: Voice recognition error. The last line of the impression should read: There is diverticulosis without evidence of diverticulitis. [ Addendum Report Added by SISSY NYE at 08/22/2024 10:02:05 ] CHEST: Pulmonary parenchyma: No consolidation. No dominant measurable mass. Mild emphysematous changes. Tracheobronchial tree: No bronchiectasis. No mucous plugging.No bronchial wall thickening. Pleura: No effusion or pneumothorax. Mediastinum: High-density material at the GE junction, likely postsurgical. No visible hiatal hernia. Pulmonary arteries: No visible emboli. Cardiovascular: Coronary artery calcifications are present. The heart size is normal. No pericardial effusion. Thoracic aorta non-dilated. Bones: Degenerative changes in the spine. No lytic or blastic lesions.No compression fractures. Soft tissues: Unremarkable. ABDOMEN and PELVIS: Liver: Normal density. No suspicious mass. Gallbladder and biliary tract: No evidence of stones or wall thickening. No biliary dilatation. Pancreas: Normal density, no abnormal calcifications or inflammatory process. Spleen: Normal. Kidneys: Normal size, contour and axis. No radiodense stones are visible.. Previously noted tiny stone at the upper pole of the left kidney is not visible likely secondary to presence of IV contrast. No obstructive uropathy. Stable bilateral simple cysts. No suspicious masses are seen. Adrenal glands: No masses seen. Aorta: Abdominal portion non-dilated. Lymph nodes: Within normal limits. Soft tissues: Unremarkable. Bladder: mIld wall thickening. Bowel: No obstruction or bowel wall thickening. Large quantity of stool from the splenic fracture through the rectum. The rectum is distended with stool, consistent with constipation. Sigmoid diverticulosis. No visible diverticulitis. Peritoneal cavity: No ascites. No focal collection. No mesenteric inflammatory response. No free air. Bones: Degenerative changes throughout the spine. Reproductive organs: Patient is now status post prostate surgery. IMPRESSION: No acute abnormality in the chest, abdomen or pelvis. Increased stool in the descending colon through rectum consistent with constipation. There is tracheal assist without evidence of diverticulitis. PFSH All Active Problems (Updated 08/22/24 @ 16:48 by Compa Ferro DO) Dehydration (Acute) Nausea & vomiting (Acute) Gross hematuria (Acute) Lower urinary tract symptoms (LUTS) (Acute) Prostate cancer (Chronic) Atherosclerotic vascular disease (Acute) Hyperlipidemia (Acute) Hypertension (Chronic) Elevated PSA (Acute) Urinary retention (Acute) Viral gastroenteritis (Acute) Medical History (Updated 08/22/24 @ 16:48 by Compa Ferro DO) Acute blood loss anemia Diverticulosis Surgical History (Updated 06/06/24 @ 12:39 by Asif Cancino MD) S/P TURP Social History Smoking/Tobacco Use Status: Never Smoking risk assessment performed?: Yes Alcohol Intake: former Drug use: Daily Substance use type: does not use and marijuana Details: Hasn't smoked in a while Housing: house Do you feel safe at home: Yes Do you feel safe in your relationship?: Yes
[2024-08-22 09:49] LABS: Troponin I 24 ng/L (<or=76)
[2024-08-22] MEDS: Normal Saline 500 ML IV (10:15)
[2024-08-22] MEDS: MYLANTA 30 ML, LIDOCAINE 2% VISCOUS UD 15 ML PO (10:16)
[2024-08-22] MEDS: Metoclopramide 10 MG/2 ML VIAL IVP (10:17)
== END 2024-08-22 11:48 | disposition home or self-care (01) ==
PROVIDERS: Emergency Provider Student in an Organized Health Care Education/Training Program; PCP Internal Medicine Cardiovascular Disease
DX: R11.2 Nausea with vomiting, unspecified (principal); E86.0 Dehydration; I45.2 Bifascicular block; I10 Essential (primary) hypertension; E78.00 Pure hypercholesterolemia, unspecified
CPT/HCPCS: 36415; 74177; 80053; 83690; 93005; 96361; 96374; 96375; 99285; 71260; 83605; 84484; 85025; 93010; J2405; J2765; J3490

== ENCOUNTER 2024-09-09 09:29 | Outpatient (CLI) | payer MEDICARE, SELFPAY ==
[2024-09-10 09:41] LABS: PSA, Diagnostic 0.6 ng/mL (<=6.5)
== END 2024-09-09 09:30 | disposition home or self-care (01) ==
LOC: LBO 09:29
PROVIDERS: PCP Internal Medicine Cardiovascular Disease; Visit Provider Urology
DX: C61 Malignant neoplasm of prostate (principal)
CPT/HCPCS: 36415; 84153

== ENCOUNTER → 2024-09-12 09:46 | Outpatient (BNVA) | payer MEDICARE, SELFPAY | PROVIDERS: PCP Internal Medicine Cardiovascular Disease; Visit Provider Urology | DX: C61 Malignant neoplasm of prostate (principal); R97.20 Elevated prostate specific antigen [PSA]; R35.0 Frequency of micturition; R39.15 Urgency of urination | CPT/HCPCS: 99214; 51798 ==

== ENCOUNTER 2024-10-15 23:16 | Emergency (ER) | payer MEDICARE, SELFPAY ==
--- NOTE | 2024-10-15 00:36 | DI.CT_ITS ---
Exam(s) CT ABDOMEN PELVIS W EXAM: CT ABDOMEN PELVIS W CLINICAL HISTORY: nausea, not taking PO. TECHNIQUE: Imaging Protocol: Axial computed tomography images with coronal and sagittal reformatted images were created and reviewed CONTRAST MATERIAL: Intravenous: Omnipaque 350 Contrast volume:75 ml Oral: no COMPARISON: CT CT CHEST/ABD/PEL W from 08/22/2024 FINDINGS: ABDOMEN and PELVIS: Lung Bases: No acute findings. Liver: Normal density. No suspicious mass. Gallbladder and biliary tract: No radiodense calculus. No wall thickening or pericholecystic fluid. No biliary dilation. Pancreas: Normal density. No abnormal calcifications or inflammatory process. No evidence of mass. Spleen: Normal. Kidneys: Normal size, contour and axis. No radiodense stones. No obstructive uropathy. Stable bilateral simple cysts. No suspicious masses seen. Adrenal glands: No masses seen. Vasculature: Abdominal aorta non-dilated. Soft tissues: Unremarkable. Bladder: Moderate wall thickening. No calculi.No focal mass. Bowel: Suture material at fundus of stomach. Stomach nearly empty. No small- bowel obstruction. No bowel wall thickening. Diverticulosis. No evidence of diverticulitis. Moderate to increased quantity of stool seen throughout the colon may indicate element of constipation. Peritoneal cavity: No ascites. No focal collection. No mesenteric inflammatory response. No free air. Bones: Degenerative changes in the spine. Reproductive organs: TURP Lymph nodes: No pathologically enlarged lymph nodes. IMPRESSION:: Bilateral thickening could indicate cystitis. Clinical correlation recommended. Increased quantity of stool consistent with constipation. The preliminary [facility] report was reviewed. RADIATION DOSE DELIVERED: 276.92mGy.cm Total DLP DATA REPOSITORY: All CT scans at this facility are submitted to the National Radiology Data Registry (NRDR) Dose Index Registry (DIR) with the [employer] (A[employer]). RADIATION OPTIMIZATION: All CT scans at this facility use at least one of these dose optimization techniques: automated exposure control; mA and/or kV adjustment per patient size (includes targeted exams where dose is matched to clinical indication); or iterative reconstruction.
[2024-10-15 23:24] VITALS: BP 180/105; PULSE 68; RESP 18; TEMP 36.8; O2SAT 98
--- NOTE | 2024-10-15 23:30 | RT.EKG_ITS ---
APPROVED REPORT Exam: Resting ECG Reason for Exam: nausea Patient Location: E HR:54 bpm ECG Measurements Heart Rate [address] 194 P 66 QRSd 152 QRS -28 QT 480 T 7 QTc 457 Conclusion Sinus bradycardia...rate< 60 Right bundle branch block...QRSd>120, terminal axis(90,270) no ST segment or T wave abnormalities to suggest occlusive IN
[2024-10-15 23:34] VITALS: PULSE 81; O2SAT 98
--- NOTE | 2024-10-15 23:38 | W.ED.GENAD ---
Discharge Plan Disposition Patient Disposition: Home Discharge Details Clinical Impression: Nausea Primary Care Provider: Jackeline Acosta ED Provider: Justine Dudley Home Meds and New Rx's Prescriptions: New ondansetron HCl 4 mg tablet 4 mg PO Q8H PRNQty: 7 0RF Continued atorvastatin 40 mg tablet 40 mg PO DAILY Qty: 90 3RF pantoprazole 40 mg tablet,delayed release (DR/EC) 40 mg PO DAILY Qty: 90 3RF Patient Comments: Pt reports not taking this 08/22/24 amlodipine 5 mg tablet 5 mg PO DAILY Qty: 90 3RF sucralfate [Carafate] 1 gram tablet 1 g PO BID Qty: 60 0RF famotidine 40 mg tablet 40 mg PO DAILY Qty: 90 0RF pantoprazole [Protonix] 40 mg tablet,delayed release (DR/EC) 40 mg PO DAILY Qty: 90 0RF oxybutynin chloride 5 mg tablet Patient Comments: TAKE ONE TABLET BY MOUTH TWICE A DAY FOR URINARY FREQUENCY Discontinued mirabegron [Myrbetriq] 50 mg tablet extended release 24 hr 50 mg PO DAILY Qty: 90 4RF Discharge Instructions Instructions: Nausea and Vomiting, Adult ED Additional Instructions: Ondansetron up to every 8 hours for nausea. Call your primary care doctor int the morning to schedule an appointment to be seen within the next 72 hours to followup on your visit here. At that visit please also discuss your blood pressure which is high here in the ED. Return to the emergency department for new or worsening symptoms including abdominal pain, inability to keep down fluids, chest pain, shortness of breath, or if you have any other concerns. HPI General Mode of arrival: ambulatory. Date/Time Provider Initiated Documentation: 10/15/24 23:21. Limitations to Documentation: no limitations. Information obtained by: patient. HPI Narrative: 78yo M with hx HTN, HLD, prostate cancer, hiatal hernia s/p repair, presenting with nausea. Has been 'dry heaving' all day, no vomiting. Has not been able to eat or drink anything today. Has a sour taste in his mouth. Feels like 'my reflux is acting up'. Last BM was yesterday, normal, nonbloody, no constipation or diarrhea. No abdominal pain, back pain, or flank pain. No chest pain or shortness of breath. Had a similar episode a month or two ago for which he was seen here; symptoms improved with treatment. He is otherwise in his usual state of health with no fevers, chills, rash, dysuria, hematuria, or other concerns. Related Data Home Medications ?Medication ?Instructions ?Recorded ?Confirmed atorvastatin 40 mg tablet 40 mg PO DAILY #90 tabs 10/03/22 10/15/24 pantoprazole 40 mg tablet,delayed 40 mg PO DAILY #90 tabs 12/06/23 10/15/24 release amlodipine 5 mg tablet 5 mg PO DAILY #90 tabs 05/27/24 10/15/24 famotidine 40 mg tablet 40 mg PO DAILY #90 tabs 08/22/24 10/15/24 pantoprazole 40 mg tablet,delayed 40 mg PO DAILY #90 tabs 08/22/24 10/15/24 release (Protonix) sucralfate 1 gram tablet (Carafate) 1 g PO BID #60 tabs 08/22/24 10/15/24 oxybutynin chloride 5 mg tablet mg 10/15/24 ondansetron HCl 4 mg tablet 4 mg PO Q8H PRN #7 tabs 10/16/24 Previous Rx's ?Medication ?Instructions ?Recorded atorvastatin 40 mg tablet 40 mg PO DAILY #90 tabs 10/03/22 pantoprazole 40 mg tablet,delayed 40 mg PO DAILY #90 tabs 12/06/23 release amlodipine 5 mg tablet 5 mg PO DAILY #90 tabs 05/27/24 famotidine 40 mg tablet 40 mg PO DAILY #90 tabs 08/22/24 pantoprazole 40 mg tablet,delayed 40 mg PO DAILY #90 tabs 08/22/24 release (Protonix) sucralfate 1 gram tablet (Carafate) 1 g PO BID #60 tabs 08/22/24 ondansetron HCl 4 mg tablet 4 mg PO Q8H PRN #7 tabs 10/16/24 Allergies Allergy/AdvReac Type Severity Reaction Status Date / Time No Known Allergies Allergy Verified 10/15/24 23:28 General Stated Complaint: Abd Prob JOSH: 3 Review of Systems Narrative: see HPI Exam Narrative Exam Narrative: General: Alert, well appearing, well nourished, in no acute distress. Head: Normocephalic, atraumatic Neck: Trachea midline, ?Neck supple. ENT: ?MMM.? No oropharygeal lesions or exudate. Cardiac: ?RRR, no murmurs appreciated Resp: No respiratory distress. CTAB. Abd: ?Soft, non-distended, nontender : ?No suprapubic tenderness. Extremities: ?No deformities.? No peripheral edema. Neurologic: GCS 15. ? Moves all extremities freely against gravity Course Vital Signs Vital signs: Vital Signs Temperature 36.8 C 10/15/24 23:24 Pulse 68 10/15/24 23:24 Respiratory Rate 18 10/15/24 23:24 Blood Pressure 180/105 H 10/15/24 23:24 Pulse Oximetry 98 10/15/24 23:24 Temperature 36.8 C 10/15/24 23:24 Pulse 68 10/15/24 23:24 Respiratory Rate 18 10/15/24 23:24 Blood Pressure 180/105 H 10/15/24 23:24 Pulse Oximetry 98 10/15/24 23:24 Pain Level 0 10/15/24 23:24 Medical Decision Making 78yo M with hx HTN, HLD, prostate cancer, hiatal hernia s/p repair, presenting with nausea. No vomiting, abdominal pain, or diarreha. Patient attributes to reflux, has had similar episodes in the past. Hypertensive on arrival, vital signs otherwise reassuring. Abdomen nontender. Does have dry MM. Will give 1LIVFB, treat symptoms with zofran and GI cocktail while awaiting results of workup. Not overtly septic. Given age, will evaluate with CT imaging. -EKG with acceptable intervals, no ST segment or T wave abnormalities to suggest occlusive [place], no concerning changes from prior. -Labs reviewed as below, CBC reassuring with no leukocytosis or anemia, CMP with no actionable abnormalities. lipase not suggestive of pancreatitis, lactate normal, troponin normal in the setting of 12 hours of constant symptoms (would not further pursue ACS). -CT independently reviewed; no obstruction or free fluid on my view, radiology read below with no emergent findings. On reassessment patient reports feeling much better, symptoms resolved. PO challenged and tolerated well. He requests discharge home which is reasonable. Discharged with short course of zofran to PCP followup. Discharge instructions and return precautions were reviewed with patient who verbalized understanding. All questions were answered and he is in full agreement with the plan. Imaging Data Radiologic Study: Imaging: CT Scan Radiologist's impression: IMPRESSION: 1. Thickened bladder wall which could be on the basis of cystitis. Please correlate clinically. 2. Findings suggesting a TURP defect. Please correlate with surgical history. 3. Constipation. 4. Fatty infiltration of the liver. Lab Data Lab results reviewed: Yes I reviewed the patient's lab results. Labs: Laboratory Tests Range/Units 10/15/24 23:46 WBC (4.4-10.8) 10^3/uL 9.51 RBC (4.36-5.78) 10^6/uL 5.63 Hgb (13.5-17.5) g/dL 15.1 Hct (40.0-50.0) % 45.7 MCV (80-95) fL 81 MCH (27.0-33.0) pg 26.8 L MCHC (32.0-36.0) % 33.0 RDW (11.8-14.1) % 16.7 H Plt Count (130-400) 10^3/uL 220 MPV (8.0-11.0) fL 9.2 Immature Gran % % 0.4 Neutrophils % % 65.1 Lymphocytes % % 19.1 Monocytes % % 7.6 Eosinophils % % 6.7 Basophils % % 1.1 Nucleated RBC % (0.0-0.3) % 0.0 Absolute Neutrophils (1.2-6.7) 10^3/uL 6.19 Absolute Lymphocytes (1.2-3.4) 10^3/uL 1.82 Absolute Monocytes (0.1-0.8) 10^3/uL 0.72 Absolute Eosinophils (0.0-0.7) 10^3/uL 0.64 Absolute Basophils (0.0-0.2) 10^3/uL 0.10 VBG Lactate (<or=2.0) mmol/L 1.2 Sodium (136-145) mmol/L 139 Potassium (3.5-5.1) mmol/L 3.6 Chloride (98-107) mmol/L 106 Carbon Dioxide (21.0-32.0) mmol/L 21.5 Anion Gap (3-11) mmol/L 11.5 H BUN (7-18) mg/dL 19 H Creatinine (0.70-1.30) mg/dL 1.0 Est GFR (CKD-EPI 2020) (mL/min/1.73m2) 77.04 Glucose (74-106) mg/dL 121 H Calcium (8.5-10.1) mg/dL 9.5 Magnesium (1.8-2.4) mg/dL 2.1 Total Bilirubin (0.2-1.0) mg/dL 0.7 AST (15-37) U/L 28 ALT (16-63) U/L 18 Alkaline Phosphatase (46-116) U/L 57 Troponin I (<or=76) ng/L 16 Total Protein (6.4-8.2) g/dL 7.9 Albumin (3.4-5.0) g/dL 4.1 Lipase (<78) U/L 23 PFSH All Active Problems (Updated 10/16/24 @ 02:24 by Justine Dudley MD) Nausea (Acute) Gross hematuria (Acute) Lower urinary tract symptoms (LUTS) (Acute) Prostate cancer (Chronic) Atherosclerotic vascular disease (Acute) Hyperlipidemia (Acute) Hypertension (Chronic) Elevated PSA (Acute) Urinary retention (Acute) Viral gastroenteritis (Acute) Medical History (Updated 10/16/24 @ 02:24 by Justine Dudley MD) Acute blood loss anemia Diverticulosis Surgical History (Updated 06/06/24 @ 12:39 by Asif Cancino MD) S/P TURP Social History Smoking/Tobacco Use Status: Never Smoking risk assessment performed?: Yes Alcohol Intake: former Drug use: Daily Substance use type: does not use and marijuana Details: Hasn't smoked in a while Housing: house Do you feel safe at home: Yes Do you feel safe in your relationship?: Yes
[2024-10-15 23:40] VITALS: PULSE 77; O2SAT 96
[2024-10-15 23:50] VITALS: PULSE 68; O2SAT 97
[2024-10-15] MEDS: Ondansetron 4 MG/2 ML VIAL IVP (23:51)
[2024-10-15 23:52] LABS: Abs Immature Grans 0.04 10^3/uL (0.0-0.06); HCT 45.7 % (40.0-50.0); HGB 15.1 g/dL (13.5-17.5); Immature Grans % 0.4 %; MCH 26.8 pg (27.0-33.0); MCHC 33.0 % (32.0-36.0); MCV 81 fL (80-95); MPV 9.2 fL (8.0-11.0); Platelet Count 220 10^3/uL (130-400); RBC 5.63 10^6/uL (4.36-5.78); RDW 16.7 % (11.8-14.1); RDW-SD 48.9 fL; WBC 9.51 10^3/uL (4.4-10.8)
[2024-10-15] MEDS: MYLANTA 30 ML, LIDOCAINE 2% VISCOUS UD 15 ML PO (23:52)
[2024-10-15] MEDS: Normal Saline 1,000 ML 1000 ML IV (23:55)
[2024-10-16] VITALS (20 sets, daily range): BP systolic 151–179; BP diastolic 95–113; PULSE 38–94; RESP 10–23; O2SAT 92–97
[2024-10-16 00:16] LABS: Lipase 23 U/L (<78)
[2024-10-16 00:22] LABS: ALT 18 U/L (16-63); AST 28 U/L (15-37); Albumin 4.1 g/dL (3.4-5.0); Alkaline Phosphatase 57 U/L (46-116); Anion Gap 11.5 mmol/L (3-11); BUN 19 mg/dL (7-18); Bilirubin, Total 0.7 mg/dL (0.2-1.0); CO2 21.5 mmol/L (21.0-32.0); Calcium 9.5 mg/dL (8.5-10.1); Chloride 106 mmol/L (98-107); Estimated GFR 77.04 (mL/min/1.73m2); Glucose 121 mg/dL (74-106); Magnesium 2.1 mg/dL (1.8-2.4); Potassium 3.6 mmol/L (3.5-5.1); Sodium 139 mmol/L (136-145); Total Protein 7.9 g/dL (6.4-8.2); Troponin I 16 ng/L (<or=76)
[2024-10-16] MEDS: Omnipaque 350 MG/ML 100 ML BTL IJ (00:35)
[2024-10-16] MEDS: Normal Saline - Diluent 50 ML VIAL IJ (00:35)
--- NOTE | 2024-10-16 00:57 | DI.VRAD_ITS ---
PROCEDURE INFORMATION: Exam: CT Abdomen And Pelvis With Contrast Exam date and time: 10/16/2024 12:10 AM Age: 78 years old Clinical indication: Prior surgery; Surgery date: 6+ months; Surgery type: Hernia surgery; Nausea, not taking po TECHNIQUE: Imaging protocol: Computed tomography of the abdomen and pelvis with contrast. Radiation optimization: All CT scans at this facility use at least one of these dose optimization techniques: automated exposure control; mA and/or kV adjustment per patient size (includes targeted exams where dose is matched to clinical indication); or iterative reconstruction. Contrast material: [id number]; Contrast volume: 75 ml; Contrast route: INTRAVENOUS (IV); COMPARISON: CT CHEST/ABD/PEL W 08/22/2024 9:07 AM FINDINGS: Lungs: Bilateral lower lobe subsegmental atelectatic changes. Liver: Mild fatty infiltration of the liver. Gallbladder and biliary ducts: Normal. No calcified stones. No ductal dilation. Pancreas: Normal. No ductal dilation. Spleen: Normal. No splenomegaly. Adrenal glands: Normal. No mass. Kidneys and ureters: Bilateral Bosniak type 1 renal cysts. Stomach and bowel: Constipation. Appendix: No evidence of appendicitis. Intraperitoneal space: Unremarkable. No free air. No significant fluid collection. Vasculature: Ectatic abdominal aorta. Lymph nodes: Unremarkable. No enlarged lymph nodes. Urinary bladder: Thickened bladder wall which could be on the basis of cystitis. Please correlate clinically. Reproductive: Changes of TURP. Please correlate clinically. 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 Soft tissues: Unremarkable. IMPRESSION: 1. Thickened bladder wall which could be on the basis of cystitis. Please correlate clinically. 2. Findings suggesting a TURP defect. Please correlate with surgical history. 3. Constipation. 4. Fatty infiltration of the liver. Dictated and Authenticated by: Avelino Bach MD. Orderin Octavia Fletcher MD
--- NOTE | 2024-10-16 02:21 | NUR.NOTE ---
PT given crackers and water. PT tolerated well. PT is feeling betterNursing Note:
== END 2024-10-16 02:32 | disposition home or self-care (01) ==
PROVIDERS: Emergency Provider Student in an Organized Health Care Education/Training Program; PCP Internal Medicine Cardiovascular Disease
DX: R11.0 Nausea (principal); I10 Essential (primary) hypertension; E78.5 Hyperlipidemia, unspecified; K59.00 Constipation, unspecified
CPT/HCPCS: 80053; 83690; 93005; 96361; 96374; 99285; 74177; 83605; 83735; 84484; 85025; 93010; 99284; J2405; J3490

== ENCOUNTER 2025-01-13 09:27 | Outpatient (CLI) | payer MEDICARE, SELFPAY ==
[2025-01-13 18:40] LABS: PSA, Diagnostic 0.6 ng/mL (<=6.5)
== END 2025-01-13 09:28 | disposition home or self-care (01) ==
LOC: LBO 09:27
PROVIDERS: PCP Internal Medicine Cardiovascular Disease; Visit Provider Urology
DX: C61 Malignant neoplasm of prostate (principal)
CPT/HCPCS: 36415; 84153

== ENCOUNTER → 2025-01-16 13:39 | Outpatient (BNVA) | payer MEDICARE, SELFPAY | PROVIDERS: PCP Internal Medicine Cardiovascular Disease; Visit Provider Urology | DX: C61 Malignant neoplasm of prostate (principal) | CPT/HCPCS: 99213 ==